=== PATIENT | male | born 1935 | race Caucasian/White ===

== ENCOUNTER 2018-06-27 15:08 | Emergency (ER) | payer MEDICARE ==
--- NOTE | 2018-06-27 16:54 | ED Physician Documentation ---
PD HPI HEENT - Stated complaint Stated Complaint: LIPS AND L CHEEK SWELLING/NUMB - Chief complaint Chief Complaint: Heent - History obtained from History obtained from: Patient - History of Present Illness Timing - onset: Today Timing - details: Abrupt onset Location: Mouth (upper lip swelling an hour or so after taking Lisinopril. He had similar swelling 6 months ago and had stopped the med. He wanted to be sure if that was the cause so started taking the med again today and got the lip swelling right away.) Similar symptoms before: No diagnosis (presumed MANDIE mediated edema 6 months ago) Recently seen: Not recently seen Review of Systems Constitutional: denies: Fever, Chills Nose: denies: Rhinorrhea / runny nose, Congestion Throat: denies: Sore throat Cardiac: denies: Chest pain / pressure Respiratory: denies: Dyspnea, Cough Neurologic: denies: Generalized weakness, Near syncope PD PAST MEDICAL HISTORY - Past Medical History Cardiovascular: Hypertension - Present Medications Home Medications: Ambulatory Orders Medication Instructions Recorded Confirmed Aspirin 06/27/18 06/27/18 Gemfibrozil 06/27/18 Glipizide 06/27/18 Lovastatin 06/27/18 - Allergies Allergies/Adverse Reactions: Allergies Allergy/AdvReac Type Severity Reaction Status Date / Time lisinopril Allergy Edema Verified 06/27/18 15:18 PD ED PE NORMAL - Vitals Vital signs reviewed: Yes - General General: Alert and oriented X 3, No acute distress, Well developed/nourished - HEENT HEENT: Pharynx benign (no edema of tongue nor uvula. Normal voice and breathing. upper lip with edema. ) - Neck Neck: Supple, no meningeal sign, No adenopathy - Cardiac Cardiac: RRR, No murmur - Respiratory Respiratory: Clear bilaterally Results - Vitals Vitals: Oxygen O2 Source Room air PD MEDICAL DECISION MAKING - ED course Complexity details: considered differential (seems good direct cause and effect, so will have him stop the lisinopril. 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 Her blood pressure is pretty good right now so I do not think you need to substitute blood pressure medicine at this time. Follow-up with your primary care as scheduled. Discharge Date/Time: 06/27/18 17:28
[2018-06-27] MEDS ORDERED: DEXAMETHASONE 10 MG/ML VIAL PO STA (17:07)
[2018-06-27 17:09] VITALS: BP 124/57
[2018-06-27] MEDS ORDERED: CHERRY SYRUP 10 ML UDC PO ONE (17:11)
== END 2018-06-27 17:28 | disposition home or self-care (01) ==
LOC: ED 15:08
DX: R22.0 Localized swelling, mass and lump, head (principal); T78.3XXA Angioneurotic edema, initial encounter; T46.4X5A Adverse effect of angiotensin-converting-enzyme inhibitors, initial encounter; I10 Essential (primary) hypertension
CPT/HCPCS: 99283; A9270

== ENCOUNTER 2019-02-26 13:29 | Outpatient (CLI) | payer MEDICARE | END 2019-02-26 13:30 | disposition critical access hospital (66) | LOC: EMS 13:29 | PROVIDERS: ATTEND Surgery | DX: R42 Dizziness and giddiness (principal); R73.09 Other abnormal glucose; R50.9 Fever, unspecified; W01.0XXA Fall on same level from slipping, tripping and stumbling without subsequent striking against object, initial encounter; Y93.01 Activity, walking, marching and hiking; Y92.480 Sidewalk as the place of occurrence of the external cause | CPT/HCPCS: A0425; A0427 ==

== ENCOUNTER 2019-02-26 13:55 | Inpatient (IN) | payer MEDICARE ==
[2019-02-26] MEDS ORDERED: SODIUM CHLORIDE 0.9% 1,000 ML IV ONE ×2 (14:02→15:14)
--- NOTE | 2019-02-26 14:05 | ED Physician Documentation ---
PD HPI ALTERED MENTAL STATUS - Stated complaint Stated Complaint: GLF - Chief complaint Chief Complaint: Neuro - History obtained from History obtained from: Patient, EMS - History of Present Illness Timing - onset: Today (83-year-old gentleman with history of nephrectomy for cancer and diabetes. Says he does not take any medications. He was [place] from the [place] and felt dizzy and fell. There was no clear injury. Brought in by paramedics, report was temperature 99.9 temporal and blood sugar was too high for the fingerstick meter to calculate. Patient is somewhat altered.) Review of Systems Unable to obtain: Confused PD PAST MEDICAL HISTORY - Past Medical History Cardiovascular: Hypertension Endocrine/Autoimmune: Type 2 diabetes - Present Medications Home Medications: Ambulatory Orders Medication Instructions Recorded Confirmed Aspirin 06/27/18 06/27/18 Gemfibrozil 06/27/18 Glipizide 06/27/18 Lovastatin 06/27/18 - Allergies Allergies/Adverse Reactions: Allergies Allergy/AdvReac Type Severity Reaction Status Date / Time lisinopril Allergy Edema Verified 02/26/19 14:03 - Social History Does the pt smoke?: No Smoking Status: Never smoker PD ED PE NORMAL - Vitals Vital signs reviewed: Yes - General General: Other (He is alert and oriented to person and place but not time or events. He says the year is 1920.) - HEENT HEENT: PERRL, EOMI, Other (Dry mucous membranes) - Neck Neck: Supple, no meningeal sign, No bony TTP - Cardiac Cardiac: Other (Frequent extrasystoles) - Respiratory Respiratory: Other (Wheezy at the bases, good air motion, no distress) - Abdomen Abdomen: Soft, Non tender - Back Back: No CVA TTP, No spinal TTP - Derm Derm: Normal color, Warm and dry - Extremities Extremities: No edema, No calf tenderness / cord - Neuro Neuro: call center representative 2-12 intact, No motor deficit, No sensory deficit Eye Opening: Spontaneous Motor: Obeys Commands Verbal: Confused GCS Score: 14 - Psych Psych: Normal mood, Normal affect Results - Vitals Vitals: Vital Signs - 24 hr 02/26/19 02/26/19 13:57 14:26 Temperature 37.1 C Heart Rate 69 73 Respiratory 18 23 Rate Blood Pressure 135/88 H 127/66 O2 Saturation 97 94 Oxygen O2 Source Room air - Labs Labs: Laboratory Tests 02/26/19 02/26/19 02/26/19 14:36 14:36 14:36 WBC 6.7 RBC 3.68 L Hgb 10.8 L Hct 33.4 L MCV 90.8 MCH 29.3 MCHC 32.3 RDW 14.6 Plt Count 133 MPV 12.5 H Neut # (Auto) 4.9 Lymph # (Auto) 1.2 L [place] # (Auto) 0.4 Eos # (Auto) 0.1 Baso # (Auto) 0.1 Absolute Nucleated RBC 0.00 Nucleated RBC % 0.0 PT 12.1 INR 1.1 VBG pH VBG pCO2 VBG pO2 VBG HCO3 VBG Total CO2 VBG O2 Saturation VBG Base Excess Sodium 125 L Potassium 4.9 Chloride 96 L Carbon Dioxide 19 L Anion Gap 10.0 BUN 25 H Creatinine 2.3 H Estimated GFR (MDRD) 27 L Glucose 713 H* Lactic Acid Calcium 7.9 L Magnesium 1.8 Total Bilirubin 0.5 AST 26 ALT 23 Alkaline Phosphatase 200 H Total Creatine Kinase 81 CK-MB (CK-2) Troponin I Total Protein 6.7 Albumin 3.0 L Globulin 3.7 Albumin/Globulin Ratio 0.8 L Lipase 69 H Urine Color Urine Clarity Urine pH Ur Specific [place] Urine Protein Urine Glucose (UA) Urine Ketones Urine Occult Blood Urine Nitrite Urine Bilirubin Urine Urobilinogen Ur Leukocyte Esterase Ur Microscopic Review Urine Culture Comments Serum Ketones NEGATIVE 02/26/19 02/26/19 02/26/19 14:36 14:36 14:44 WBC RBC Hgb Hct MCV MCH MCHC RDW Plt Count MPV Neut # (Auto) Lymph # (Auto) [place] # (Auto) Eos # (Auto) Baso # (Auto) Absolute Nucleated RBC Nucleated RBC % PT INR VBG pH 7.280 L VBG pCO2 42.4 VBG pO2 50.8 H VBG HCO3 19.5 L VBG Total CO2 20.8 L VBG O2 Saturation 86.7 H VBG Base Excess -6.9 L Sodium Potassium Chloride Carbon Dioxide Anion Gap BUN Creatinine Estimated GFR (MDRD) Glucose Lactic Acid 1.9 Calcium Magnesium Total Bilirubin AST ALT Alkaline Phosphatase Total Creatine Kinase CK-MB (CK-2) 3.6 Troponin I < 0.04 Total Protein Albumin Globulin Albumin/Globulin Ratio Lipase Urine Color Urine Clarity Urine pH Ur Specific [place] Urine Protein Urine Glucose (UA) Urine Ketones Urine Occult Blood Urine Nitrite Urine Bilirubin Urine Urobilinogen Ur Leukocyte Esterase Ur Microscopic Review Urine Culture Comments Serum Ketones 02/26/19 15:05 WBC RBC Hgb Hct MCV MCH MCHC RDW Plt Count MPV Neut # (Auto) Lymph # (Auto) [place] # (Auto) Eos # (Auto) Baso # (Auto) Absolute Nucleated RBC Nucleated RBC % PT INR VBG pH VBG pCO2 VBG pO2 VBG HCO3 VBG Total CO2 VBG O2 Saturation VBG Base Excess Sodium Potassium Chloride Carbon Dioxide Anion Gap BUN Creatinine Estimated GFR (MDRD) Glucose Lactic Acid Calcium Magnesium Total Bilirubin AST ALT Alkaline Phosphatase Total Creatine Kinase CK-MB (CK-2) Troponin I Total Protein Albumin Globulin Albumin/Globulin Ratio Lipase Urine Color YELLOW Urine Clarity HAZY Urine pH 6.0 Ur Specific [place] 1.010 Urine Protein 100 H Urine Glucose (UA) >=1000 H Urine Ketones NEGATIVE Urine Occult Blood SMALL H Urine Nitrite NEGATIVE Urine Bilirubin NEGATIVE Urine Urobilinogen 0.2 (NORMAL) Ur Leukocyte Esterase NEGATIVE Ur Microscopic Review INDICATED Urine Culture Comments Not Reportable Serum Ketones - Rads (name of study) CT Head and Cspine Radiology: EMP read contemporaneously (atrophy, DJD, NAD) 1v chest Radiology: EMP read contemporaneously (cardiomegaly, NAD) PD MEDICAL DECISION MAKING - ED course ED course: This is an 83-year-old gentleman who presents somewhat confused after a fall without clear injury. Head and C-spine CT were without clear injury and there was no obvious injury nor infectious cause on the chest x-ray. His work-up demonstrates profound hyperglycemia with renal failure of unclear chronicity. He had a history of a remote nephrectomy but he says he never had trouble with renal insufficiency. No prior labs available in our system regardless he will need to be admitted for further evaluation and treatment. An insulin drip was started and I spoke with Dr. Darby for admission at 3:15 PM. Departure - Departure Disposition: 66 [facility] DC/Xfer Clinical Impression: Hyperglycemia, Renal insufficiency, Confusion Condition: Serious
--- NOTE | 2019-02-26 14:39 | CT Report ---
Reason: altered, fall Procedure Date: 02/26/2019 Accession Number: [id number] / [id number] Procedure: CT - HEAD WO CPT Code: FULL RESULT: EXAM: CT HEAD EXAM DATE: 02/26/2019 02:26 PM. CLINICAL HISTORY: Altered, fall. COMPARISON: None. TECHNIQUE: Multiaxial CT images were obtained from the foramen magnum to the vertex. Reformats: Sagittal and coronal. IV contrast: None. In accordance with CT protocol optimization, one or more of the following dose reduction techniques were utilized for this exam: automated exposure control, adjustment of mA and/or KV based on patient size, or use of iterative reconstructive technique. FINDINGS: The imaged portions of the paranasal sinuses are normally aerated. The bilateral mastoid air cells are normally aerated. There is no acute fracture of the calvaria. The imaged portions of the orbits are normal in appearance. There are periventricular, subcortical, and deep white matter hypodensities consistent with a mild to moderate degree of chronic small vessel ischemia. There is enlargement of the lateral ventricles and the third ventricle but not out of proportion to the concomitant enlargement of the cerebral sulci. The jason-white differentiation remains distinct. The imaged portions of the orbits are normal in appearance. IMPRESSION: 1. There is no acute intracranial abnormality. 2. There is mild to moderate degree of chronic small vessel ischemia and mild to moderate degree of generalized volume loss.
--- NOTE | 2019-02-26 14:46 | XRAY Report ---
Reason: abd breath sounds, altered Procedure Date: 02/26/2019 Accession Number: [id number] / [id number] Procedure: XR - Chest 1 View X-Ray CPT Code: 16561 FULL RESULT: EXAM: CHEST RADIOGRAPHY, PORTABLE 1 VIEW EXAM DATE: 02/26/2019 02:25 PM. CLINICAL HISTORY: Abnormal breath sounds, altered, in an 83-year-old male. COMPARISON: None. TECHNIQUE: 1405 hour AP portable view. FINDINGS: Lungs/Pleura: No focal opacities evident. No pleural effusion. No pneumothorax. Mediastinum: Heart size mildly enlarged, without adenopathy or pulmonary vascular congestion. Other: Trachea is midline. Osseous structures are unremarkable for age. IMPRESSION: Mild cardiomegaly without CHF, pneumonia or other demonstrated cause for the patient's symptoms. RADIA
--- NOTE | 2019-02-26 14:49 | CT Report ---
Reason: altered fall Procedure Date: 02/26/2019 Accession Number: [id number] / [id number] Procedure: CT - CERVICAL SPINE WO CPT Code: FULL RESULT: EXAM: CT CERVICAL SPINE WITHOUT CONTRAST DATE: 02/26/2019 02:26 PM. HISTORY: Altered. Fall in an 83-year-old male. COMPARISONS: None. TECHNIQUE: Examination performed on an emergent basis. Thin-section axial images were acquired of the cervical spine without contrast. Post-processing: Coronal and sagittal reformats. Other: None. In accordance with CT protocol optimization, one or more of the following dose reduction techniques were utilized for this exam: automated exposure control, adjustment of mA and/or KV based on patient size, or use of iterative reconstructive technique. FINDINGS: Alignment: No scoliosis or spondylolisthesis. Bones: Mild to moderate hypertrophic changes, age appropriate. No fracture or bone lesion. Interspace Levels/Facets: Moderate to severe degenerative disk space narrowing from C2-C3 through C7-T1. No subluxation. Musculature: Normal. No fatty atrophy. Other: The paravertebral and prevertebral soft tissues are unremarkable. The lung apices are clear. IMPRESSION: Multilevel mild to moderate degenerative disk disease. No acute process or posttraumatic abnormality noted. RADIA
[2019-02-26 14:55] LABS: BASOPHILS # (AUTO) 0.1 10^3/uL (0.0-0.1); BASOPHILS % (AUTO) 0.7 %; EOSINOPHILS # (AUTO) 0.1 10^3/uL (0.0-0.7); EOSINOPHILS % (AUTO) 0.9 %; HGB - HEMOGLOBIN 10.8 g/dL (14.0-18.0); LYMPHOCYTES # (AUTO) 1.2 10^3/uL (1.5-3.5); LYMPHOCYTES % (AUTO) 18.1 %; MEAN CORPUSCULAR HEMOGLOBIN 29.3 pg (27.0-31.0); MEAN CORPUSCULAR HGB CONC 32.3 g/dL (32.0-36.0); MEAN CORPUSCULAR VOLUME 90.8 fL (80.0-94.0); MEAN PLATELET VOLUME 12.5 fL (7.4-11.4); MONOCYTES # (AUTO) 0.4 10^3/uL (0.0-1.0); NEUTROPHILS # (AUTO) 4.9 10^3/uL (1.5-6.6); NEUTROPHILS % (AUTO) 73.3 %; PLT - PLATELET COUNT 133 10^3/uL (130-450); RED BLOOD COUNT 3.68 10^6/uL (4.70-6.10); RED CELL DISTRIBUTION WIDTH 14.6 % (12.0-15.0); VBG BASE EXCESS -6.9 mmol/L (-2 - +2); VBG PCO2 42.4 mmHg (41-51); VBG PH 7.28 (7.31-7.41); VBG PO2 50.8 mmHg (25-47); VBG TOTAL CO2 20.8 mmol/L (24-29); WHITE BLOOD COUNT 6.7 x10^3/uL (4.8-10.8)
[2019-02-26 15:05] LABS: KETONES, SERUM (ACETEST) NEGATIVE (NEGATIVE)
[2019-02-26 15:10] LABS: INR 1.1 (0.8-1.2); PT - PROTHROMBIN TIME 12.1 secs (9.9-12.6)
[2019-02-26 15:13] LABS: ALBUMIN/GLOBULIN RATIO 0.8 (1.0-2.2); ALKALINE PHOSPHATASE 200 IU/L (42-121); ALT ALANINE AMINOTRANSFERASE 23 IU/L (10-60); AST ASPARTATE AMINOTRANSFERASE 26 IU/L (10-42); BILIRUBIN,TOTAL 0.5 mg/dL (0.2-1.0); BUN - BLOOD UREA NITROGEN 25 mg/dL (6-20); CALCIUM 7.9 mg/dL (8.5-10.3); CARBON DIOXIDE - CO2 19 mmol/L (21-32); CHLORIDE 96 mmol/L (101-111); CK- CREATINE KINASE 81 IU/L (22-269); CREATININE 2.3 mg/dL (0.6-1.2); GFR - MDRD 27 (>89); GLUCOSE 713 mg/dL (70-100); LIPASE 69 U/L (22-51); MAGNESIUM 1.8 mg/dL (1.7-2.8); SODIUM 125 mmol/L (135-145); TOTAL PROTEIN 6.7 g/dL (6.7-8.2)
[2019-02-26 15:13] LABS: BILIRUBIN,URINE NEGATIVE (NEGATIVE); GLUCOSE, URINE (UA) >=1000 mg/dL (NEGATIVE); KETONES,URINE (UA) NEGATIVE (NEGATIVE); LEUKOCYTE ESTERASE, URINE NEGATIVE (NEGATIVE); NITRITE,URINE NEGATIVE (NEGATIVE); OCCULT BLOOD,URINE SMALL (NEGATIVE); PROTEIN,URINE 100 mg/dL (NEGATIVE); UROBILINOGEN,URINE 0.2 (NORMAL) E.U./dL (NORMAL)
[2019-02-26 15:15] LABS: TROPONIN I < 0.04 ng/mL (<0.49)
[2019-02-26 15:16] LABS: CLARITY,URINE HAZY (CLEAR)
[2019-02-26 15:17] LABS: CREATINE KINASE MB 3.6 ng/mL (0.6-6.3)
[2019-02-26] MEDS ORDERED: HYDROmorphone 1 MG/ML CARPUJECT IVP PRN (15:29)
[2019-02-26] MEDS ORDERED: ACETAMINOPHEN 325 MG TABLET PO PRN (15:29)
[2019-02-26] MEDS ORDERED: SODIUM CHLORIDE FLUSH 0.9% 10 ML SYRINGE IVP PRN (15:29)
[2019-02-26] MEDS ORDERED: PROCHLORPERAZINE 10 MG/2 ML VIAL IVP PRN (15:29)
[2019-02-26 15:36] LABS: BACTERIA,URINE Moderate /HPF (None Seen); SQUAMOUS EPITHELIAL CELL,UR RARE Squamous (<= Few); WBC CLUMPS,URINE PRESENT
[2019-02-26] MEDS ORDERED: INSULIN REGULAR HUMAN 100 UNIT in SODIUM CHLORIDE 0.9% 100ML 99 ML IV SCH ×2 (16:00)
[2019-02-26 16:25] LABS: FOLATE 6.42 ng/mL (5.90 - >24.8)
[2019-02-26] MEDS: SODIUM CHLORIDE 0.9% 1,000 ML IV SCH ×2 (16:40→21:39)
[2019-02-26 16:53] LABS: MUDS CUTOFF CONCENTRATIONS CUTOFF CONC BELOW:
[2019-02-26 17:09] LABS: AMPHETAMINE SCREEN,URINE NEGATIVE (NEGATIVE); BENZODIAZEPINES SCREEN, URINE NEGATIVE (NEGATIVE); COCAINE SCREEN URINE NEGATIVE (NEGATIVE); METHADONE SCREEN, URINE NEGATIVE (NEGATIVE); METHAMPHETAMINES SCREEN, URINE NEGATIVE (NEGATIVE); OPIATE SCREEN, URINE NEGATIVE (NEGATIVE); OXYCODONE SCREEN, URINE NEGATIVE (NEGATIVE); PROPOXYPHENE SCREEN, URINE NEGATIVE (NEGATIVE); TRICYCLIC ANTIDEPRESSANT,URINE NEGATIVE (NEGATIVE)
[2019-02-26 17:13] LABS: CALCIUM 8.1 mg/dL (8.5-10.3); CREATININE 2.3 mg/dL (0.6-1.2); MAGNESIUM 1.9 mg/dL (1.7-2.8)
[2019-02-26] MEDS: SODIUM CHLORIDE FLUSH 0.9% 10 ML SYRINGE IVP SCH (17:37)
--- NOTE | 2019-02-26 17:48 | ADVANCE CARE PLANNING NOTE ---
Advance Care Planning - Date/Time Date: 02/26/19 Time: 17:45 - Purpose of encounter Text: To establish patient's code wishes and his wishes for aggressiveness of medical care. To confirm if he is noncompliant with medications because of depression over his 's and "giving up". - Parties in attendance Parties in attendance: The Hospitalist spoke to the patient who was sitting upright in bed, and the wendy jeong's nurse, Crispin Patel, was in the room - Decisional capacity Decisional capacity of: The patient appears to be lucid despite having some loss of memory but is speaking clearly and making sense and has reasonable requests, and appears to have decisional capacity - Subjective/Patient's story Subjective/Patient's story: Patient has a history of diabetes and hypertension, refuses to use Insulin because he is "afraid of needles" (this is from the reconciled medication list that pharmacy obtained moments ago). I received a message from the nurse and the pharmacist that the granddaughter described the patient as giving up on life ever since patient's 7 months ago. The patient admits to intermittently not taking his medications, because it is not handy or he is forgetful but not on purpose. He now lives alone, the grand-daughter visits him every other day. Today while walking up a slope on the sidewalk he got dizzy, held onto a tree and then slumped to the ground, did not have syncope, remembers everything, is brought to the ER by EMS. He was confused in the ER and found to have hyperglycemia, hyponatremia, dehydration with CHRISTIANO. - Objective/Medical story Objective/Medical Story: The patient was brought to the ER after a fall, possibly no syncope, probably no trauma. Head CT and C-spine x-rays showed no fracture or hemorrhage. Work-up showed: Glucose 738, sodium 129, anion gap elevated, VBG shows pH of 7.28. Creat is 2.3. He has a history of renal carcinoma, is status post nephrectomy, baseline creatinine is not known. He has a history of diabetes and hypertension. He is in the ICU for management of hyperglycemia with an Insulin drip and dehy dration and CHRISTIANO with iv hydration. Work-up of near-syncope will be ordered. - Goals of Care Goals of care determinations: Patient states that he never told his family or his PCP what his wishes are for CODE STATUS. Patient reports to me now that he would not want resuscitation, he wants to allow natural . Patient also wants selective medical care, he would not wish to be transferred to a larger hospital for higher level of care - Plan Plan: Sign new POLST form: DNR status and selective treatment. - Code Status Code Status: Do Not Attempt Resuscitation - Time Spent on Advance Care Planning Time spent on advance care plannin min
[2019-02-26 17:53] LABS: VBG BASE EXCESS -5.5 mmol/L (-2 - +2); VBG PCO2 47.7 mmHg (41-51); VBG PH 7.271 (7.31-7.41); VBG PO2 18.9 mmHg (25-47); VBG TOTAL CO2 22.9 mmol/L (24-29)
[2019-02-26 18:16] LABS: HB2 TOTAL 12.4 g/dL; HEMOGLOBIN A1C 1.96 g/dL; HEMOGLOBIN A1C % 16.6 % (4.6-6.2)
[2019-02-26 18:18] LABS: CREATININE 2.3 mg/dL (0.6-1.2)
--- NOTE | 2019-02-26 19:21 | HISTORY & PHYSICAL EXAMINATION ---
DATE OF SERVICE: 02/26/2019 Physician: Hannah Darby MD HISTORY OF PRESENT ILLNESS: This is an 83-year-old white male with a history of renal cancer with a nephrectomy remotely, history of diabetes and hypertension. The patient's in June (8 months ago) and according to the granddaughter, the patient has lost the will to live and has stopped taking his medications and taking care of himself. Today, the patient was attending a [place] parade, was walking up a steep slope and states that he got dizzy, walked over toward a tree and hugged it and was still dizzy and slumped to the ground. He did not fall with any trauma. He does not think he had syncope, as he can remember the entire event. He was brought to the ER by an ambulance. The ambulance run sheet is not available to tell me the vital signs on the scene. In the emergency room, he had stable blood pressure and heart rate, was somewhat confused, giving very short answers. He did admit to not taking his medications occasionally. He denied any other complaints and was no longer dizzy. Workup in the ER showed that he has hyperglycemia with glucose of >700, serum pH of 7.23, creatinine of 2.3. He is being admitted for management of these. PAST MEDICAL HISTORY 1. Renal cancer with nephrectomy, his baseline renal function is not known, no prior renal lab values here. 2. History of hypertension. 3. History of diabetes, and he has refused to take insulin since he is "afraid of needles" according to the granddaughter. ALLERGIES: GEMFIBROZIL WITH UNKNOWN REACTION and LISINOPRIL CAUSED ANGIOEDEMA OF HIS LIPS. MEDICATIONS AT HOME He is prescribed to be takin. Cetirizine 10 mg daily. 2. Metformin 1000 mg b.i.d. 3. Glipizide 10 mg b.i.d. 4. Amlodipine 2.5 mg daily. He has not taken these for several days. REVIEW OF SYSTEMS: The patient denies any cardiopulmonary complaints. A comprehensive review of system was performed and the pertinent positives were all listed, the rest were negative. SOCIAL HISTORY: The patient lives alone. He watches TV most of the day. His granddaughter visits him every other day to assist him with medications and food. The patient is a nonsmoker, who quit 20 years ago. The patient drinks no alcohol. There has been no recent travel, fever or other complaints. The patient no longer drives a car because he was told not to because of his poor memory. FAMILY HISTORY: No inherited diseases. PHYSICAL EXAMINATION GENERAL: Elderly, thin white male. He is slightly disheveled. He is in no distress. VITAL SIGNS: Blood pressure 150/100, heart rate 73 in sinus rhythm, afebrile, room air saturation 96%. HEENT: Reveals that he is unshaven. Oral mucosa is moist. NECK: No JVD or carotid bruits. CHEST: Clear. HEART: Normal heart sounds, but distant. No audible murmurs. No RV heave. No gallop. ABDOMEN: Soft with positive bowel sounds, nontender. No organomegaly. EXTREMITIES: No clubbing, cyanosis or edema. NEUROLOGIC: Intact. He admits to having a poor memory. LABORATORY DATA: Sodium 125, potassium 4.9, BUN 25, creatinine 2.3, glucose 713, magnesium 1.8. Normal liver tests. Alkaline phosphatase 200. Troponin not detectable. Lactic acid normal at 1.9. Venous blood gas had a pH of 7.28. White blood count normal, hemoglobin 10.8, MCV 90, platelet count normal at 133. Urinalysis had positive protein, high glucose, small occult blood, small white cells, moderate bacteria, and culture was indicated. Urine tox screen was negative entirely. Alcohol level was not present and serum ketones were negative. INR normal at 1.1. CHEST X-RAY: No active pulmonary disease. Cardiomegaly is present. Head CT: Showed no bleeding, no midline shift, and there are changes of mild diffuse ischemic disease. Cervical spine CT: Showed DJD, but no areas of fracture. IMPRESSION/DIAGNOSES 1. Hyperglycemia. 2. Dehydration. 3. Acute kidney injury. 4. Confusion. 5. Fall against object (tree). 6. Near-syncope. 7. Noncompliance with treatment. 8. History of diabetes. 9. Elevated alkaline phosphatase. 10. abnormal urinalysis (possible urinary tract infection). PLAN 1. Admit the patient to the ICU on telemetry. 2. Begin a DKA protocol briefly, using IV insulin drip to help control the marked hyperglycemia. 3. Begin IV fluids with saline. 4. Follow his fingerstick glucoses, anion gap and BMP, VBG closely. 5. Obtain an Echo to evaluate LV and RV contractility. 6. Obtain an EKG because of his history of fall, and with advanced age and history of diabetes, making coronary artery disease a possibility. 7. The first troponin was negative, repeat a troponin to assure that this was not a cardiac event. 8. Obtain Social Work consult regarding his noncompliance. I suspect there is reactive depression and continued grief. 9. He will need workup for elevated alkaline phosphatase, which is out of proportion to any liver abnormalities, therefore concern for bony metastasis or Paget's disease of the bone. 10. Consider empiric treatment for urinary tract infection and image for urinary obstruction or pyelonephritis. Rocephin would be started. 11. Follow his renal function closely. CODE STATUS: DNR (he just requested a DNR status). DEEP VENOUS THROMBOSIS PROPHYLAXIS: JUVENAL stockings and SCDs. ATTESTATION: The patient is expected to be transferred to another facility within 96 hours: Yes. cc: LINDSEY TD: 02/26/2019 18:19 [facility]
[2019-02-26 19:28] LABS: VBG PCO2 45.7 mmHg (41-51); VBG PH 7.263 (7.31-7.41); VBG PO2 25.5 mmHg (25-47); VBG TOTAL CO2 21.6 mmol/L (24-29)
[2019-02-26 19:29] LABS: VBG BASE EXCESS -6.7 mmol/L (-2 - +2)
[2019-02-26] MEDS: FAMOTIDINE 20 MG TABLET PO SCH (21:30)
[2019-02-27 00:01] LABS: BILIRUBIN,URINE NEGATIVE (NEGATIVE); CLARITY,URINE CLEAR (CLEAR); GLUCOSE, URINE (UA) >=1000 mg/dL (NEGATIVE); KETONES,URINE (UA) NEGATIVE (NEGATIVE); LEUKOCYTE ESTERASE, URINE NEGATIVE (NEGATIVE); NITRITE,URINE NEGATIVE (NEGATIVE); OCCULT BLOOD,URINE SMALL (NEGATIVE); PH,URINE 6.5 PH (5.0-7.5); PROTEIN,URINE 100 mg/dL (NEGATIVE); UROBILINOGEN,URINE 0.2 (NORMAL) E.U./dL (NORMAL)
[2019-02-27 00:07] LABS: BACTERIA,URINE Few /HPF (None Seen); SQUAMOUS EPITHELIAL CELL,UR FEW Squamous (<= Few)
[2019-02-27] MEDS: SODIUM CHLORIDE FLUSH 0.9% 10 ML SYRINGE IVP SCH ×3 (01:21→19:15)
[2019-02-27 04:58] LABS: BASOPHILS # (AUTO) 0.1 10^3/uL (0.0-0.1); BASOPHILS % (AUTO) 0.8 %; EOSINOPHILS # (AUTO) 0.1 10^3/uL (0.0-0.7); EOSINOPHILS % (AUTO) 1.2 %; HGB - HEMOGLOBIN 10.7 g/dL (14.0-18.0); MEAN CORPUSCULAR HGB CONC 32.2 g/dL (32.0-36.0); MONOCYTES # (AUTO) 0.6 10^3/uL (0.0-1.0); MONOCYTES % (AUTO) 7.2 %; NEUTROPHILS # (AUTO) 5.5 10^3/uL (1.5-6.6); NEUTROPHILS % (AUTO) 65.5 %; PLT - PLATELET COUNT 147 10^3/uL (130-450); RED BLOOD COUNT 3.69 10^6/uL (4.70-6.10); RED CELL DISTRIBUTION WIDTH 14.7 % (12.0-15.0); WHITE BLOOD COUNT 8.4 x10^3/uL (4.8-10.8)
[2019-02-27 05:15] LABS: CALCIUM 7.9 mg/dL (8.5-10.3); CREATININE 2.1 mg/dL (0.6-1.2); MAGNESIUM 1.9 mg/dL (1.7-2.8); PHOSPHORUS 2.6 mg/dL (2.5-4.6)
[2019-02-27] MEDS: SODIUM CHLORIDE 0.9% 1,000 ML IV SCH ×3 (05:15→21:59)
--- NOTE | 2019-02-27 06:17 | XRAY Report ---
Reason: Cardiomegaly, F/U for pulm vasc congestion Procedure Date: 02/27/2019 Accession Number: [id number] / [id number] Procedure: XR - Chest 1 View X-Ray CPT Code: 40348 FULL RESULT: EXAM: CHEST RADIOGRAPHY EXAM DATE: 02/27/2019 05:20 AM. CLINICAL HISTORY: Cardiomegaly, follow-up for pulmonary vascular congestion. COMPARISON: CHEST 1 VIEW 02/26/2019 2:05 PM. TECHNIQUE: 1 view. FINDINGS: Lungs/Pleura: Small subsegmental bibasilar opacities are noted. No significant effusion. No definite pneumothorax. No pulmonary venous congestion demonstrated. Mediastinum: Cardiac silhouette is within normal limits when accounting for lung volumes and technique. Other: None. IMPRESSION: 1. No evidence of CHF. 2. Small subsegmental bibasilar opacities, atelectasis, aspiration, or developing pneumonia. RADIA
[2019-02-27] MEDS ORDERED: INSULIN ASPART 300 UNIT/3 ML PEN SUBQ SCH (08:00)
[2019-02-27] MEDS ORDERED: metFORMIN 500 MG TABLET PO SCH (08:00)
[2019-02-27] MEDS: FAMOTIDINE 20 MG TABLET PO SCH (08:28)
--- NOTE | 2019-02-27 08:40 | PROVIDER PROGRESS NOTE ---
Assessment/Plan - Problem List (1) DM (diabetes mellitus), type 2, uncontrolled Assessment/Plan: The A1c returned at 16.6 indicating extremely poor control of Diabetes. The glucose has dropped from the 700s to the 200s, the IV insulin drip is stopped. We will begin long-acting insulin 10 units subcu twice daily and sliding scale insulin coverage. Continue with a carb controlled diet. Diabetic teaching from [facility] would be very helpful. (2) Noncompliance with diabetes treatment Assessment/Plan: The family suspects that he has no will to live since his in June 2018, therefore is not taking his Diabetic (and other) meds. There is also note that the patient "is afraid of needles". Other information is that the patient vehemently refuses any insulin use, already known by the PCP. Social work consult has been requested regarding possible depression or continued grieving. [facility] [place] consult has been requested to determine best realistic diabetic management for him. (3) Cerebral ischemia Assessment/Plan: Brain CT showed evidence of diffuse chronic ischemic disease. Likely causes are very poorly controlled DM, HTN uncontrolled and hyperlipidemia (a.m. Triglycerides very high). Awaiting carotid Doppler. Obtain a full fasting lipid panel and treat per NCAP guidelines: to achieve an L DL <70 in a Diabetic and triglycerides <150. (4) Confusion Assessment/Plan: This is likely multifactorial: he is probably depressed, has cerebral ischemia seen on brain CT, has been hyperosmolar and dehydrated. I have asked for Social Work to see him regarding possible depression. He is not a safe discharge to living alone at home, social work will need to address this as well. I have ordered fasting lipid panel and will start treatment to achieve levels per guidelines. More aggressive diabetic management as needed: Diabetic teaching has been ordered. Now that he has had hydration overnight, will stop the bedrest order, order out of bed and begin PT and OT evaluations. (5) Fall Qualifiers: Encounter type: subsequent encounter Qualified Code(s): W19.XXXD - Unspecified fall, subsequent encounter Assessment/Plan: No sequelae of trauma. He needs a syncope W/U as he becomes more mobile. (6) Near syncope Assessment/Plan: Will start orthostatic VS checks. Also Echo and carotid Dopplers ordered. Follow CBC regarding anemia and start anemia work-up. Now that he has had hydration overnight, will stop the bedrest order, order out of bed and begin PT (7) Renal insufficiency Assessment/Plan: Patient has one kidney, is status post nephrectomy for renal cell carcinoma rem otely. His baseline creatinine is unknown however. There are no creat lab results in [facility] even. Continue with gentle IV hydration and avoid nephrotoxic agents. As such his Metformin will not be restarted yet. (8) Anemia Assessment/Plan: This is of concern since he is hemodiluted with his need for rehydration. Will obtain B12, folate, iron panel and replace if low. Follow CBC daily, he may need transfusion if the hemoglobin drops below 7 or 8 and he is symptomatic (9) Atelectasis of both lungs Assessment/Plan: Today's CXR is showing either a develpoing CAP or atelectasis. Will order Incentive Spirometry. (10) UTI (urinary tract infection) Assessment/Plan: 2 urinalyses were done that showed bacteria and cultures are indicated. We will start on empiric IV antibiotics using Rocephin. 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 Will consider a nuclear scan of skeleton to evaluate. The abdomen CT will also evaluate the biliary tree, liver and pancreas where abnormalities s may also cause elevated alk phos - Current Meds Current Meds: Current Medications Generic Name Dose Route Start Last Admin Trade Name Freq PRN Reason Stop Dose Admin Famotidine 20 mg 02/26/19 21:00 02/27/19 08:28 Pepcid PO 20 mg BID DAVID Administration Sodium Chloride 1,000 mls @ 125 mls/hr 02/26/19 16:00 02/27/19 08:28 Normal Saline 0.9% IV 125 mls/hr .Q8H DAVID Infusion Insulin Aspart 1 - 9 unit 02/27/19 08:00 02/27/19 08:17 Novolog SUBQ 7 unit 0800,1200,1700,2100 DAVID Administration Protocol Sodium Chloride 10 ml 02/26/19 17:00 02/27/19 01:21 Normal Saline Flush 0.9% IVP Not Given 0100,0900,1700 DAVID - Lab Result Fish Bone Diagrams: 02/27/19 04:35 02/27/19 04:35 - Additional Planning My Orders: My Active Orders 02/26/19 15:29 Activity Orders [RC] Q2HR Daily Weight [RC] 0600 IO [RC] Q1HR Initiate Bowel Care Protocol [RC] QSHIFT Initiate ICU Electrolyte Prot. [RC] .protocol Initiate Line Care Protocol [RC] .protocol Initiate Personal Care Protoco [RC] .protocol Vital Signs [RC] Q2HR Acetaminophen [Tylenol] 650 mg PO Q4HR PRN HYDROmorphone INJ CARP [Dilaudid Inj Carp] 1 mg IVP Q2HR PRN Prochlorperazine Inj [Compazine Inj] 10 mg IVP Q6HR PRN Sodium Chloride Flush 0.9% [Normal Saline Flush 0.9%] 10 ml IVP PRN PRN Condition of Patient [OTHERS] Routine DVT Prophylaxis [OTHERS] Routine 02/26/19 15:31 Oral Care - Nursing [RC] Routine Oxygen Therapy [RC] .PRN JUVENAL Hose and SCDs [RC] QSHIFT Telemetry- [RC] Q4HR 02/26/19 15:35 Initiate Line Care Protocol [RC] QSHIFT Social Work Consult [CONS] Routine 02/26/19 15:36 Blood Glucose POC [RC] Routine Initiate DKA RN Protocol [RC] .protocol Initiate Hypoglycemia Protocol [RC] .protocol Initiate ICU Electrolyte Prot. [RC] .protocol Notify Provider - Specific Ins [RC] PRN Straight Catheter Insertion [RC] PRN 02/26/19 16:00 Sodium Chloride 0.9% [Normal Saline 0.9%] 1,000 ml IV 125 mls/hr 02/26/19 17:00 Sodium Chloride Flush 0.9% [Normal Saline Flush 0.9%] 10 ml IVP 0100,0900,1700 02/26/19 17:53 Nutrition Consult [CONS] Routine 02/26/19 21:00 Famotidine [Pepcid] 20 mg PO BID 02/26/19 23:02 CUL, URINE [RM] Routine 02/26/19 Dinner DIET [Carb-controlled Diet] [DIET] 02/27/19 Diabetes Outpatient Education MAC [MAC] Routine 02/27/19 05:00 LIPID Panel [CHEM] Routine 02/27/19 08:00 Echo Transthoracic Complete [ECHO] Routine 02/27/19 08:35 IS [Incentive Spirometry - RT] [RC] TID 02/27/19 08:37 Diabetic Education [RC] ONCE MAC Diabetic Ed E&M Levels [RC] .once 02/28/19 05:00 BMP - BASIC METABOLIC PANEL [CHEM] DAILYLAB CBC - COMP BLD CT W/AUTO DIFF [HEME] DAILYLAB MAGNESIUM [CHEM] DAILYLAB 03/01/19 05:00 CBC - COMP BLD CT W/AUTO DIFF [HEME] DAILYLAB Subjective - Subjective Patient Reports: Feeling Better Nursing Reports: No Complaints, Other (Excellent appetite) Objective Vital Signs: Vital Signs - 24 hr 02/26/19 02/26/19 02/26/19 13:57 14:26 15:40 Temperature 37.1 C Heart Rate 69 73 73 Heart Rate [ Monitoring electrodes] Respiratory 18 23 21 Rate Blood Pressure 135/88 H 127/66 145/84 H Blood Pressure [Right Brachial artery] O2 Saturation 97 94 94 02/26/19 02/26/19 02/26/19 16:00 17:00 19:00 Temperature 36.6 C Heart Rate Heart Rate [ 77 Monitoring electrodes] Respiratory 17 25 H 19 Rate Blood Pressure Blood Pressure 139/79 H 152/104 H 120/64 [Right Brachial artery] O2 Saturation 98 96 96 02/26/19 02/26/19 02/27/19 22:00 23:00 01:00 Temperature 36.8 C Heart Rate Heart Rate [ 60 58 L 55 L Monitoring electrodes] Respiratory 19 18 19 Rate Blood Pressure Blood Pressure 141/77 H 139/73 H 115/68 [Right Brachial artery] O2 Saturation 96 96 97 02/27/19 02/27/19 02/27/19 03:00 05:00 08:06 Temperature 36.8 C Heart Rate Heart Rate [ 57 L 64 55 L Monitoring electrodes] Respiratory 18 17 16 Rate Blood Pressure Blood Pressure 121/65 138/67 H 149/76 H [Right Brachial artery] O2 Saturation 96 95 92 02/27/19 08:08 Temperature Heart Rate Heart Rate [ Monitoring electrodes] Respiratory Rate Blood Pressure Blood Pressure 149/76 H [Right Brachial artery] O2 Saturation Oxygen O2 Source Room air I&O (Last 24 Hrs): Intake and Output Totals x24h 02/25/19 02/26/19 02/27/19 23:59 23:59 23:59 Intake Total 2208.447 1744.193 Output Total 650 250 Balance 6122.793 5826.193 General: Alert HEENT: Mucous membr. moist/pink Neck: Supple, No JVD Neuro: Non Focal Cardiovascular: Regular rate Respiratory: No respiratory distress Abdomen: Soft Extremities: No edema - Results Results: Laboratory Results WBC 8.4 x10^3/uL (4.8-10.8) 02/27/19 04:35 RBC 3.69 10^6/uL (4.70-6.10) L 02/27/19 04:35 Hgb 10.7 g/dL (14.0-18.0) L 02/27/19 04:35 Hct 33.2 % (42.0-52.0) L 02/27/19 04:35 MCV 90.0 fL (80.0-94.0) 02/27/19 04:35 MCH 29.0 pg (27.0-31.0) 02/27/19 04:35 MCHC 32.2 g/dL (32.0-36.0) 02/27/19 04:35 RDW 14.7 % (12.0-15.0) 02/27/19 04:35 Plt Count 147 10^3/uL (130-450) 02/27/19 04:35 MPV 12.0 fL (7.4-11.4) H 02/27/19 04:35 Neut # (Auto) 5.5 10^3/uL (1.5-6.6) 02/27/19 04:35 Lymph # (Auto) 2.0 10^3/uL (1.5-3.5) 02/27/19 04:35 Stone # (Auto) 0.6 10^3/uL (0.0-1.0) 02/27/19 04:35 Eos # (Auto) 0.1 10^3/uL (0.0-0.7) 02/27/19 04:35 Baso # (Auto) 0.1 10^3/uL (0.0-0.1) 02/27/19 04:35 Absolute Nucleated RBC 0.00 x10^3/uL 02/27/19 04:35 Nucleated RBC % 0.0 /100WBC 02/27/19 04:35 PT 12.1 secs (9.9-12.6) 02/26/19 14:36 INR 1.1 (0.8-1.2) 02/26/19 14:36 VBG pH 7.263 (7.31-7.41) L 02/26/19 19:21 VBG pCO2 45.7 mmHg (41-51) 02/26/19 19:21 VBG pO2 25.5 mmHg (25-47) 02/26/19 19:21 VBG HCO3 20.2 mmol/L (23-28) L 02/26/19 19:21 VBG Total CO2 21.6 mmol/L (24-29) L 02/26/19 19:21 VBG O2 Saturation 50.4 % (60-80) L 02/26/19 19:21 VBG Base Excess -6.7 mmol/L (-2 - +2) L 02/26/19 19:21 Sodium 135 mmol/L (135-145) 02/27/19 04:35 Potassium 4.5 mmol/L (3.5-5.0) 02/27/19 04:35 Chloride 107 mmol/L (101-111) 02/27/19 04:35 Carbon Dioxide 20 mmol/L (21-32) L 02/27/19 04:35 Anion Gap 8.0 (6-13) 02/27/19 04:35 BUN 26 mg/dL (6-20) H 02/27/19 04:35 Creatinine 2.1 mg/dL (0.6-1.2) H 02/27/19 04:35 Estimated GFR (MDRD) 30 (>89) L 02/27/19 04:35 Glucose 235 mg/dL (70-100) H 02/27/19 04:35 Glycated Hemoglobin 16.6 % (4.6-6.2) H 02/26/19 17:47 Estim Average Glucose 430 (70-100) H 02/26/19 17:47 Lactic Acid 1.9 mmol/L (0.5-2.2) 02/26/19 14:44 Calcium 7.9 mg/dL (8.5-10.3) L 02/27/19 04:35 Phosphorus 2.6 mg/dL (2.5-4.6) 02/27/19 04:35 Magnesium 1.9 mg/dL (1.7-2.8) 02/27/19 04:35 Iron 74 ug/dL (45-182) 02/26/19 17:47 TIBC 392 ug/dL (250-450) 02/26/19 17:47 % Saturation 19 % (20-50) L 02/26/19 17:47 Transferrin 280 mg/dL (180-329) 02/26/19 17:47 Total Bilirubin 0.5 mg/dL (0.2-1.0) 02/26/19 14:36 AST 26 IU/L (10-42) 02/26/19 14:36 ALT 23 IU/L (10-60) 02/26/19 14:36 Alkaline Phosphatase 200 IU/L (42-121) H 02/26/19 14:36 Total Creatine Kinase 81 IU/L (22-269) 02/26/19 14:36 CK-MB (CK-2) 3.6 ng/mL (0.6-6.3) 02/26/19 14:36 Troponin I < 0.04 ng/mL (<0.49) 02/26/19 21:03 Total Protein 6.7 g/dL (6.7-8.2) 02/26/19 14:36 Albumin 3.0 g/dL (3.2-5.5) L 02/26/19 14:36 Globulin 3.7 g/dL (2.1-4.2) 02/26/19 14:36 Albumin/Globulin Ratio 0.8 (1.0-2.2) L 02/26/19 14:36 Triglycerides 290 mg/dL (-149) H 02/27/19 04:35 Lipase 69 U/L (22-51) H 02/26/19 14:36 Vitamin B12 555 pg/mL (180-914) 02/26/19 14:36 Folate 6.42 ng/mL (5.90 - >24.8) 02/26/19 14:36 Urine Color YELLOW 02/26/19 23:02 Urine Clarity CLEAR (CLEAR) 02/26/19 23:02 Urine pH 6.5 PH (5.0-7.5) 02/26/19 23:02 Ur Specific Spencer 1.010 (1.002-1.030) 02/26/19 23:02 Urine Protein 100 mg/dL (NEGATIVE) H 02/26/19 23:02 Urine Glucose (UA) >=1000 mg/dL (NEGATIVE) H 02/26/19 23:02 Urine Ketones NEGATIVE mg/dL (NEGATIVE) 02/26/19 23:02 Urine Occult Blood SMALL (NEGATIVE) H 02/26/19 23:02 Urine Nitrite NEGATIVE (NEGATIVE) 02/26/19 23:02 Urine Bilirubin NEGATIVE (NEGATIVE) 02/26/19 23:02 Urine Urobilinogen 0.2 (NORMAL) E.U./dL (NORMAL) 02/26/19 23:02 Ur Leukocyte Esterase NEGATIVE (NEGATIVE) 02/26/19 23:02 Urine RBC 6-10 /HPF (0-5) H 02/26/19 23:02 Urine WBC 6-10 /HPF (0-3) H 02/26/19 23:02 Urine WBC Clumps PRESENT 02/26/19 15:05 Ur Squamous Epith Cells FEW Squamous (<= Few) 02/26/19 23:02 Urine Bacteria Few /HPF (None Seen) 02/26/19 23:02 Ur Microscopic Review INDICATED 02/26/19 23:02 Urine Culture Comments INDICATED 02/26/19 23:02 Nasal Screen MRSA (PCR) NEGATIVE (NEGATIVE) 02/26/19 16:30 Urine Opiates Screen NEGATIVE (NEGATIVE) 02/26/19 16:00 Ur Oxycodone Screen NEGATIVE (NEGATIVE) 02/26/19 16:00 Urine Methadone Screen NEGATIVE (NEGATIVE) 02/26/19 16:00 Ur Propoxyphene Screen NEGATIVE (NEGATIVE) 02/26/19 16:00 Ur Barbiturates Screen NEGATIVE (NEGATIVE) 02/26/19 16:00 Ur Tricyclics Screen NEGATIVE (NEGATIVE) 02/26/19 16:00 Ur Phencyclidine Scrn NEGATIVE (NEGATIVE) 02/26/19 16:00 Ur Amphetamine Screen NEGATIVE (NEGATIVE) 02/26/19 16:00 U Methamphetamines Scrn NEGATIVE (NEGATIVE) 02/26/19 16:00 U Benzodiazepines Scrn NEGATIVE (NEGATIVE) 02/26/19 16:00 Urine Cocaine Screen NEGATIVE (NEGATIVE) 02/26/19 16:00 U Cannabinoids Screen NEGATIVE (NEGATIVE) 02/26/19 16:00 Ethyl Alcohol < 5.0 mg/dL 02/26/19 14:36 Serum Ketones NEGATIVE (NEGATIVE) 02/26/19 14:36 Blood Type O POSITIVE 02/26/19 15:42 Blood Type Recheck O POSITIVE 02/26/19 14:36 Antibody Screen NEGATIVE 02/26/19 15:42
[2019-02-27 08:55] LABS: CHOL/HDL RATIO 6.4 (<5.0); CHOLESTEROL 178 mg/dL; HDL CHOLESTEROL 28 mg/dL; LDL CHOLESTEROL,CALCULATED 93 mg/dL; LDL/HDL RATIO 3.3 (<3.6); VLDL CHOLESTEROL 57 mg/dL
[2019-02-27 09:21] LABS: VBG BASE EXCESS -7.1 mmol/L (-2 - +2); VBG PCO2 39.3 mmHg (41-51); VBG PH 7.298 (7.31-7.41); VBG PO2 43.1 mmHg (25-47)
[2019-02-27] MEDS ORDERED: cefTRIAXone 2 GM VIAL IVP SCH (10:00)
[2019-02-27] MEDS: INSULIN GLARGINE 300 UNIT/3 ML PEN SUBQ SCH ×2 (10:37→21:04)
[2019-02-27] MEDS ORDERED: INSULIN ASPART 300 UNIT/3 ML PEN SUBQ ONE ×2 (11:46→19:19)
[2019-02-27] MEDS: cefTRIAXone 2 GM in SODIUM CHLORIDE 0.9% MINIBAG 100 ML IV SCH (12:04)
[2019-02-27] MEDS: INSULIN ASPART 300 UNIT/3 ML PEN SUBQ SCH ×3 (12:05→21:03)
--- NOTE | 2019-02-27 13:42 | Ultrasound Report ---
Reason: Near-syncope, cerebral ischemia on CT Procedure Date: 02/27/2019 Accession Number: [id number] / [id number] Procedure: US - Carotid Doppler Complete CPT Code: FULL RESULT: EXAM: BILATERAL CAROTID AND VERTEBRAL ARTERY DUPLEX DOPPLER ULTRASOUND: EXAM DATE: 02/27/2019 12:57 PM CLINICAL HISTORY: Near-syncope, cerebral ischemia on CT. COMPARISON: None. TECHNIQUE: Grayscale imaging, color Doppler, and duplex spectral Doppler were used to evaluate the carotid and vertebral arteries bilaterally. Static images were obtained. FINDINGS: There is bilateral mild calcified plaque in the carotid bulb and internal carotid arteries without high-grade stenosis visible on jason scale or color Doppler imaging. No velocity elevation. Carotid arteries are tortuous. Normal antegrade flow is present in bilateral vertebral arteries. VELOCITIES (cm/sec): Right CCA mid: PSV 37 cm/sec CCA dist: PSV 49 cm/sec ICA prox: PSV 45 cm/sec, EDV 10 cm/sec ICA mid: PSV 58 cm/sec, EDV 14 cm/sec ICA dist: PSV 67 cm/sec, EDV 14 cm/sec ECA: PSV 100 cm/sec Vert: PSV 41 cm/sec ICA/CCA: 1.36 Left CCA mid: PSV 50 cm/sec CCA dist: PSV 62 cm/sec ICA prox: PSV 46 cm/sec, EDV 11 cm/sec ICA mid: PSV 62 cm/sec, EDV 18 cm/sec ICA dist: PSV 42 cm/sec, EDV 11 cm/sec ECA: PSV 85 cm/sec Vert: PSV 45 cm/sec ICA/CCA: 1.0 ICA diameter stenosis: Right: <50% by velocity and <70% by NASCET criteria. Left: <50% by velocity and <70% by NASCET criteria. IMPRESSION: 1. Mild bilateral carotid artery plaquing. 2. In the right carotid artery there are no elevated carotid artery velocities to suggest hemodynamically significant stenosis. 3. In the left carotid artery there are no elevated carotid artery velocities to suggest hemodynamically significant stenosis. 4. Normal antegrade flow is present in bilateral vertebral arteries. General Recommendations: Stenosis =50% ICA - Follow-up ultrasound 6-12 months Stenosis <50% ICA - High Risk Patient with plaque - Follow-up ultrasound 1-2 years Normal Study but High Risk Patient - Follow-up ultrasound 3-5 years Management recommendations and diagnostic criteria are based on current IAC endorsed standards in Carotid Artery Stenosis: Grayscale and Doppler Ultrasound Diagnosis. Validated velocity measurements with angiographic measurements and velocity criteria are extrapolated from diameter data as defined by the Society of Radiologists in Ultrasound Consensus Conference Radiology 2003; 229;340-346. RADIA
--- NOTE | 2019-02-27 14:18 | CT Report ---
Reason: UTI, eval for pyeloneph or obstruction Procedure Date: 02/27/2019 Accession Number: [id number] / [id number] Procedure: CT - Abdomen/Pelvis WO CPT Code: FULL RESULT: EXAM: CT ABDOMEN AND PELVIS (CT KUB) EXAM DATE: 02/27/2019 10:20 AM. CLINICAL HISTORY: Urinary tract infection, evaluate for pyelonephritis or obstruction. COMPARISONS: None. TECHNIQUE: Routine axial helical CT imaging was performed through the abdomen and pelvis without IV contrast. Reconstructions: Coronal and sagittal. In accordance with CT protocol optimization, one or more of the following dose reduction techniques were utilized for this exam: automated exposure control, adjustment of mA and/or KV based on patient size, or use of iterative reconstructive technique. FINDINGS: Lung Bases: Unremarkable. Right Kidney/Ureter: There are at least 2 4-mm diameter calculi in the right kidney, one in the upper and the other in the lower pole calyces. There is mild dilation of the proximal right ureter. There is no perinephric fluid collection. Pyelonephritis cannot be excluded without IV contrast. Left Kidney/Ureter: Prior left nephrectomy. Other Solid Organs: There are calculi in the gallbladder. The liver, spleen and pancreas appear unremarkable. The adrenal glands appear unremarkable. Peritoneal Cavity: No free fluid, free air or chris adenopathy. Bowel is grossly unremarkable. Pelvic Organs: There is a posterior bladder diverticulum. The bladder is distended. The prostate gland does not appear enlarged, and measures 4.0 cm in maximum mediolateral diameter. The findings suggest chronic urinary retention. Vasculature: Unremarkable. Other: Moderate degenerative change at L2-L3 and L3-L4. IMPRESSION: 1. Bladder diverticulum. The bladder is distended suggestive of chronic bladder outlet obstruction. 2. 2 nonobstructive right renal calculi. No ureteric calculus on the right. Pyelonephritis cannot be excluded without IV contrast. RADIA
[2019-02-27] MEDS: QUEtiapine 25 MG TABLET PO SCH ×2 (19:50→21:03)
[2019-02-27] MEDS ORDERED: INSULIN REGULAR HUMAN 100 UNIT in SODIUM CHLORIDE 0.9% 100ML 99 ML IV ONE (20:55)
[2019-02-28] MEDS ORDERED: INSULIN GLARGINE 300 UNIT/3 ML PEN SUBQ STA (03:16)
[2019-02-28] MEDS: SODIUM CHLORIDE FLUSH 0.9% 10 ML SYRINGE IVP SCH ×3 (03:21→17:09)
[2019-02-28 05:10] LABS: BASOPHILS # (AUTO) 0.1 10^3/uL (0.0-0.1); BASOPHILS % (AUTO) 0.7 %; EOSINOPHILS # (AUTO) 0.1 10^3/uL (0.0-0.7); EOSINOPHILS % (AUTO) 1.6 %; HGB - HEMOGLOBIN 10.6 g/dL (14.0-18.0); LYMPHOCYTES # (AUTO) 1.9 10^3/uL (1.5-3.5); LYMPHOCYTES % (AUTO) 27.5 %; MEAN CORPUSCULAR HEMOGLOBIN 28.4 pg (27.0-31.0); MEAN CORPUSCULAR HGB CONC 31.5 g/dL (32.0-36.0); MEAN CORPUSCULAR VOLUME 90.1 fL (80.0-94.0); MEAN PLATELET VOLUME 11.9 fL (7.4-11.4); MONOCYTES # (AUTO) 0.5 10^3/uL (0.0-1.0); MONOCYTES % (AUTO) 7.7 %; NEUTROPHILS # (AUTO) 4.2 10^3/uL (1.5-6.6); NEUTROPHILS % (AUTO) 61.6 %; PLT - PLATELET COUNT 134 10^3/uL (130-450); RED BLOOD COUNT 3.73 10^6/uL (4.70-6.10); RED CELL DISTRIBUTION WIDTH 14.7 % (12.0-15.0); WHITE BLOOD COUNT 6.8 x10^3/uL (4.8-10.8)
[2019-02-28 05:15] LABS: CALCIUM 8.2 mg/dL (8.5-10.3); CREATININE 2.2 mg/dL (0.6-1.2)
[2019-02-28] MEDS: SODIUM CHLORIDE 0.9% 1,000 ML IV SCH ×3 (05:49→22:08)
[2019-02-28] MEDS: cefTRIAXone 2 GM in SODIUM CHLORIDE 0.9% MINIBAG 100 ML IV SCH (08:25)
[2019-02-28] MEDS: FAMOTIDINE 20 MG TABLET PO SCH (08:25)
[2019-02-28] MEDS: INSULIN ASPART 300 UNIT/3 ML PEN SUBQ SCH ×4 (08:35→21:22)
--- NOTE | 2019-02-28 08:40 | PROVIDER PROGRESS NOTE ---
Assessment/Plan - Problem List (1) DM (diabetes mellitus), type 2, uncontrolled Qualifiers: Glycemic state: with hyperglycemia Qualified Code(s): E11.65 - Type 2 diabetes mellitus with hyperglycemia (5) Fall Qualifiers: Encounter type: subsequent encounter Qualified Code(s): W19.XXXD - Unspecified fall, subsequent encounter - Current Meds Current Meds: Current Medications Generic Name Dose Route Start Last Admin Trade Name Freq PRN Reason Stop Dose Admin Famotidine 20 mg 02/28/19 09:00 02/28/19 08:25 Pepcid PO 20 mg DAILY DAVID Administration Sodium Chloride 1,000 mls @ 125 mls/hr 02/26/19 16:00 02/28/19 07:00 Normal Saline 0.9% IV 125 mls/hr .Q8H DAVID Infusion Ceftriaxone Sodium 2 gm/ 100 mls @ 200 mls/hr 02/27/19 12:00 02/28/19 08:25 Sodium Chloride IV 200 mls/hr DAILY DAVID Administration Insulin Aspart 3 - 11 unit 02/27/19 12:00 02/28/19 08:35 Novolog SUBQ Not Given 0800,1200,1700,2100 [facility] Protocol Insulin Glargine 10 unit 02/27/19 09:00 02/27/19 21:04 Lantus Solostar SUBQ Not Given BID DAVID Quetiapine Fumarate 25 mg 02/27/19 19:18 02/27/19 21:03 Seroquel PO Not Given QPM DAVID Sodium Chloride 10 ml 02/26/19 17:00 02/28/19 08:36 Normal Saline Flush 0.9% IVP 10 ml 0100,0900,1700 DAVID Administration - Lab Result Fish Bone Diagrams: 02/28/19 04:35 02/28/19 04:35 - Additional Planning My Orders: My Active Orders 02/27/19 08:00 Echo Transthoracic Complete [ECHO] Routine 02/27/19 08:35 IS [Incentive Spirometry - RT] [RC] .TID 02/27/19 08:37 Diabetic Education [RC] ONCE MAC Diabetic Ed E&M Levels [RC] .once 02/27/19 09:00 Insulin Glargine [Lantus Solostar] 10 unit SUBQ BID 02/27/19 09:02 Postural [Vital Signs - Orthostatic] [RC] QSHIFT 07/05/19 12:00 Insulin Aspart [NovoLOG] 3 - 11 unit SUBQ 0800,1200,1700,2100 cefTRIAXone [Rocephin] 2 gm Sodium Chloride 0.9% Minibag [Normal Saline 0.9% Minibag] 100 ml IV DAILY 02/27/19 19:18 QUEtiapine [SEROquel] 25 mg PO QPM 02/27/19 Lunch Carb-controlled Diet [DIET] 02/28/19 09:00 Famotidine [Pepcid] 20 mg PO DAILY 03/01/19 05:00 CBC - COMP BLD CT W/AUTO DIFF [HEME] DAILYLAB Objective Vital Signs: Vital Signs - 24 hr 02/27/19 02/27/19 02/27/19 10:08 10:36 11:00 Temperature Heart Rate [ 82 Activity] Heart Rate [ 66 71 Monitoring electrodes] Heart Rate [ Standing (After 1 Minute)] Heart Rate [ 62 Supine] Respiratory 18 16 Rate Respiratory Rate [Without Activity] Blood Pressure 153/123 H [Activity] Blood Pressure 154/73 H 156/69 H [Right Brachial artery] Blood Pressure [Standing ( After 1 Minute) ] Blood Pressure 156/69 H [Supine] O2 Saturation 96 95 O2 Saturation [ Without Activity] 02/27/19 02/27/19 02/27/19 13:00 15:03 15:06 Temperature 36.7 C Heart Rate [ Activity] Heart Rate [ 86 76 Monitoring electrodes] Heart Rate [ 86 Standing (After 1 Minute)] Heart Rate [ 80 Supine] Respiratory 17 18 Rate Respiratory Rate [Without Activity] Blood Pressure [Activity] Blood Pressure 171/92 H 161/77 H [Right Brachial artery] Blood Pressure 162/81 H [Standing ( After 1 Minute) ] Blood Pressure 161/77 H [Supine] O2 Saturation 97 O2 Saturation [ Without Activity] 02/27/19 02/27/19 02/27/19 16:00 16:46 16:50 Temperature 36.8 C Heart Rate [ 90 Activity] Heart Rate [ 79 Monitoring electrodes] Heart Rate [ Standing (After 1 Minute)] Heart Rate [ 90 Supine] Respiratory 16 Rate Respiratory 21 Rate [Without Activity] Blood Pressure 153/123 H [Activity] Blood Pressure 145/66 H [Right Brachial artery] Blood Pressure [Standing ( After 1 Minute) ] Blood Pressure 152/78 H [Supine] O2 Saturation 98 O2 Saturation [ 94 Without Activity] 02/27/19 02/27/19 02/27/19 18:19 19:00 21:00 Temperature 36.7 C 37.4 C Heart Rate [ Activity] Heart Rate [ 87 100 84 Monitoring electrodes] Heart Rate [ Standing (After 1 Minute)] Heart Rate [ Supine] Respiratory 25 H 24 22 Rate Respiratory Rate [Without Activity] Blood Pressure [Activity] Blood Pressure 164/86 H 156/95 H [Right Brachial artery] Blood Pressure [Standing ( After 1 Minute) ] Blood Pressure [Supine] O2 Saturation 95 O2 Saturation [ Without Activity] 02/27/19 02/27/19 02/28/19 22:09 23:00 01:00 Temperature Heart Rate [ Activity] Heart Rate [ 91 66 83 Monitoring electrodes] Heart Rate [ Standing (After 1 Minute)] Heart Rate [ Supine] Respiratory 22 16 14 Rate Respiratory Rate [Without Activity] Blood Pressure [Activity] Blood Pressure 136/84 H 116/60 139/74 H [Right Brachial artery] Blood Pressure [Standing ( After 1 Minute) ] Blood Pressure [Supine] O2 Saturation 95 O2 Saturation [ Without Activity] 02/28/19 02/28/19 02/28/19 03:00 05:00 05:27 Temperature 37.4 C Heart Rate [ Activity] Heart Rate [ 84 85 87 Monitoring electrodes] Heart Rate [ Standing (After 1 Minute)] Heart Rate [ Supine] Respiratory 19 18 17 Rate Respiratory Rate [Without Activity] Blood Pressure [Activity] Blood Pressure 112/80 84/59 L [Right Brachial artery] Blood Pressure [Standing ( After 1 Minute) ] Blood Pressure [Supine] O2 Saturation 97 96 O2 Saturation [ Without Activity] 02/28/19 07:00 Temperature Heart Rate [ Activity] Heart Rate [ 70 Monitoring electrodes] Heart Rate [ Standing (After 1 Minute)] Heart Rate [ Supine] Respiratory 15 Rate Respiratory Rate [Without Activity] Blood Pressure [Activity] Blood Pressure 140/76 H [Right Brachial artery] Blood Pressure [Standing ( After 1 Minute) ] Blood Pressure [Supine] O2 Saturation 94 O2 Saturation [ Without Activity] Oxygen O2 Source [Without Activity] Room air O2 Source Room air I&O (Last 24 Hrs): Intake and Output Totals x24h 02/26/19 02/27/19 02/28/19 23:59 23:59 23:59 Intake Total 2208.447 4742.377 1760.168 Output Total 650 2750 Balance 0580.539 7495.377 1760.168 - Results Results: Laboratory Results WBC 6.8 x10^3/uL (4.8-10.8) 02/28/19 04:35 RBC 3.73 10^6/uL (4.70-6.10) L 02/28/19 04:35 Hgb 10.6 g/dL (14.0-18.0) L 02/28/19 04:35 Hct 33.6 % (42.0-52.0) L 02/28/19 04:35 MCV 90.1 fL (80.0-94.0) 02/28/19 04:35 MCH 28.4 pg (27.0-31.0) 02/28/19 04:35 MCHC 31.5 g/dL (32.0-36.0) L 02/28/19 04:35 RDW 14.7 % (12.0-15.0) 02/28/19 04:35 Plt Count 134 10^3/uL (130-450) 02/28/19 04:35 MPV 11.9 fL (7.4-11.4) H 02/28/19 04:35 Neut # (Auto) 4.2 10^3/uL (1.5-6.6) 02/28/19 04:35 Lymph # (Auto) 1.9 10^3/uL (1.5-3.5) 02/28/19 04:35 Quay # (Auto) 0.5 10^3/uL (0.0-1.0) 02/28/19 04:35 Eos # (Auto) 0.1 10^3/uL (0.0-0.7) 02/28/19 04:35 Baso # (Auto) 0.1 10^3/uL (0.0-0.1) 02/28/19 04:35 Absolute Nucleated RBC 0.00 x10^3/uL 02/28/19 04:35 Nucleated RBC % 0.0 /100WBC 02/28/19 04:35 PT 12.1 secs (9.9-12.6) 02/26/19 14:36 INR 1.1 (0.8-1.2) 02/26/19 14:36 VBG pH 7.298 (7.31-7.41) L 02/27/19 09:05 VBG pCO2 39.3 mmHg (41-51) L 02/27/19 09:05 VBG pO2 43.1 mmHg (25-47) 02/27/19 09:05 VBG HCO3 18.8 mmol/L (23-28) L 02/27/19 09:05 VBG Total CO2 20.0 mmol/L (24-29) L 02/27/19 09:05 VBG O2 Saturation 83.6 % (60-80) H 02/27/19 09:05 VBG Base Excess -7.1 mmol/L (-2 - +2) L 02/27/19 09:05 Sodium 140 mmol/L (135-145) 02/28/19 04:35 Potassium 4.1 mmol/L (3.5-5.0) 02/28/19 04:35 Chloride 111 mmol/L (101-111) 02/28/19 04:35 Carbon Dioxide 19 mmol/L (21-32) L 02/28/19 04:35 Anion Gap 10.0 (6-13) 02/28/19 04:35 BUN 28 mg/dL (6-20) H 02/28/19 04:35 Creatinine 2.2 mg/dL (0.6-1.2) H 02/28/19 04:35 Estimated GFR (MDRD) 29 (>89) L 02/28/19 04:35 Glucose 138 mg/dL (70-100) H 02/28/19 04:35 Glycated Hemoglobin 16.6 % (4.6-6.2) H 02/26/19 17:47 Estim Average Glucose 430 (70-100) H 02/26/19 17:47 Lactic Acid 1.9 mmol/L (0.5-2.2) 02/26/19 14:44 Calcium 8.2 mg/dL (8.5-10.3) L 02/28/19 04:35 Phosphorus 2.6 mg/dL (2.5-4.6) 02/27/19 04:35 Magnesium 2.0 mg/dL (1.7-2.8) 02/28/19 04:35 Iron 74 ug/dL (45-182) 02/26/19 17:47 TIBC 392 ug/dL (250-450) 02/26/19 17:47 % Saturation 19 % (20-50) L 02/26/19 17:47 Transferrin 280 mg/dL (180-329) 02/26/19 17:47 Total Bilirubin 0.5 mg/dL (0.2-1.0) 02/26/19 14:36 AST 26 IU/L (10-42) 02/26/19 14:36 ALT 23 IU/L (10-60) 02/26/19 14:36 Alkaline Phosphatase 200 IU/L (42-121) H 02/26/19 14:36 Total Creatine Kinase 81 IU/L (22-269) 02/26/19 14:36 CK-MB (CK-2) 3.6 ng/mL (0.6-6.3) 02/26/19 14:36 Troponin I < 0.04 ng/mL (<0.49) 02/26/19 21:03 Total Protein 6.7 g/dL (6.7-8.2) 02/26/19 14:36 Albumin 3.0 g/dL (3.2-5.5) L 02/26/19 14:36 Globulin 3.7 g/dL (2.1-4.2) 02/26/19 14:36 Albumin/Globulin Ratio 0.8 (1.0-2.2) L 02/26/19 14:36 Triglycerides 284 mg/dL (-149) H 02/27/19 04:35 Cholesterol 178 mg/dL (-199) 02/27/19 04:35 LDL Cholesterol, Calc 93 mg/dL (-129) 02/27/19 04:35 VLDL Cholesterol 57 mg/dL 02/27/19 04:35 HDL Cholesterol 28 mg/dL (60-) L 02/27/19 04:35 LDL/HDL Ratio 3.3 (<3.6) 02/27/19 04:35 Cholesterol/HDL Ratio 6.4 (<5.0) 02/27/19 04:35 Lipase 69 U/L (22-51) H 02/26/19 14:36 Vitamin B12 555 pg/mL (180-914) 02/26/19 14:36 Folate 6.42 ng/mL (5.90 - >24.8) 02/26/19 14:36 Urine Color YELLOW 02/26/19 23:02 Urine Clarity CLEAR (CLEAR) 02/26/19 23:02 Urine pH 6.5 PH (5.0-7.5) 02/26/19 23:02 Ur Specific Phillips 1.010 (1.002-1.030) 02/26/19 23:02 Urine Protein 100 mg/dL (NEGATIVE) H 02/26/19 23:02 Urine Glucose (UA) >=1000 mg/dL (NEGATIVE) H 02/26/19 23:02 Urine Ketones NEGATIVE mg/dL (NEGATIVE) 02/26/19 23:02 Urine Occult Blood SMALL (NEGATIVE) H 02/26/19 23:02 Urine Nitrite NEGATIVE (NEGATIVE) 02/26/19 23:02 Urine Bilirubin NEGATIVE (NEGATIVE) 02/26/19 23:02 Urine Urobilinogen 0.2 (NORMAL) E.U./dL (NORMAL) 02/26/19 23:02 Ur Leukocyte Esterase NEGATIVE (NEGATIVE) 02/26/19 23:02 Urine RBC 6-10 /HPF (0-5) H 02/26/19 23:02 Urine WBC 6-10 /HPF (0-3) H 02/26/19 23:02 Urine WBC Clumps PRESENT 02/26/19 15:05 Ur Squamous Epith Cells FEW Squamous (<= Few) 02/26/19 23:02 Urine Bacteria Few /HPF (None Seen) 02/26/19 23:02 Ur Microscopic Review INDICATED 02/26/19 23:02 Urine Culture Comments INDICATED 02/26/19 23:02 Nasal Screen MRSA (PCR) NEGATIVE (NEGATIVE) 02/26/19 16:30 Urine Opiates Screen NEGATIVE (NEGATIVE) 02/26/19 16:00 Ur Oxycodone Screen NEGATIVE (NEGATIVE) 02/26/19 16:00 Urine Methadone Screen NEGATIVE (NEGATIVE) 02/26/19 16:00 Ur Propoxyphene Screen NEGATIVE (NEGATIVE) 02/26/19 16:00 Ur Barbiturates Screen NEGATIVE (NEGATIVE) 02/26/19 16:00 Ur Tricyclics Screen NEGATIVE (NEGATIVE) 02/26/19 16:00 Ur Phencyclidine Scrn NEGATIVE (NEGATIVE) 02/26/19 16:00 Ur Amphetamine Screen NEGATIVE (NEGATIVE) 02/26/19 16:00 U Methamphetamines Scrn NEGATIVE (NEGATIVE) 02/26/19 16:00 U Benzodiazepines Scrn NEGATIVE (NEGATIVE) 02/26/19 16:00 Urine Cocaine Screen NEGATIVE (NEGATIVE) 02/26/19 16:00 U Cannabinoids Screen NEGATIVE (NEGATIVE) 02/26/19 16:00 Ethyl Alcohol < 5.0 mg/dL 02/26/19 14:36 Serum Ketones NEGATIVE (NEGATIVE) 02/26/19 14:36 Blood Type O POSITIVE 02/26/19 15:42 Blood Type Recheck O POSITIVE 02/26/19 14:36 Antibody Screen NEGATIVE 02/26/19 15:42
[2019-02-28] MEDS: INSULIN GLARGINE 300 UNIT/3 ML PEN SUBQ SCH ×2 (08:54→21:22)
--- NOTE | 2019-02-28 14:36 | PROVIDER PROGRESS NOTE ---
Assessment/Plan - Problem List (1) DM (diabetes mellitus), type 2, uncontrolled Qualifiers: Glycemic state: with hyperglycemia Qualified Code(s): E11.65 - Type 2 diabetes mellitus with hyperglycemia Assessment/Plan: He continues to have poor glucose control, glucose levels of 400-500. He required IV insulin drip again for about 6 hours overnight. His long-acting Lantus insulin dose is being increased. Sliding scale Reg insulin dose to cover for fingerstick checks is now at high scale. Diabetic teaching was attempted yesterday but occurred right when he was ing therefore not successful. Plan continued management as currently ordered with carb-controlled diet and Insulin. (2) UTI (urinary tract infection) Assessment/Plan: 2 urinalyses were done that showed bacteria and cultures are indicated. Abdomen and pelvis imaging was indeterminate for pyelonephritis, there was description of obstruction presumably from BPH. There are also 2 nonobstructing stones present. Urine cultures have grown mixed kenia, suggesting skin contaminant. Blood cx are neg to date. Will treat empirically for a gram-negative UTI with a 21-day course. Will change to empiric iv Rocephin p.o. antibiotics starting tomorrow, using TMP/Sulfa 1 po bid for 18 more days. (3) Noncompliance with diabetes treatment Assessment/Plan: This is likely multifactorial: he is probably depressed, has cerebral ischemia seen on brain CT (dementia), and has been hyperosmolar and dehydrated. The family suspects that he has no will to live since his in June 2018, therefore is not taking his Diabetic (and other) meds. There is also note that the patient "is afraid of needles". Other information is that the patient vehemently refuses any insulin use, already known by the PCP. If he goes to a fdc, Insulin will be administered for him. [facility] diabetic teaching consult has been requested to determine best realistic diabetic management for him. Social work consult has been requested regarding possible depression or continued grieving. He is not a safe discharge to living alone at home, social work will need to address this as well. (4) Dementia Assessment/Plan: Brain CT showed evidence of diffuse chronic ischemic disease. Likely causes are very poorly controlled DM, HTN uncontrolled and hyperlipidemia. Carotid Doppler showed mild-moderate plaque and Echo had no clots. He Sundowns and has paranoia (per Social Work eval), consistent with Dementia. Serquel was dosed yesterday. Will continue scheduled Seroquel every evening. (5) Near syncope Assessment/Plan: He was probably orthostatic leading to the near syncope before admission. CT of the brain showed evidence of cerebral ischemia, chronic, and no acute findings. His BUN and creatinine increased today, suggesting he is still volume depleted With PT, will check orthostatic vital signs while here (6) Renal insufficiency Assessment/Plan: Patient has one kidney, is status post nephrectomy for renal cell carcinoma remotely. His baseline creatinine is unknown however. There are no creat lab results in [facility] even. BUN and creatinine increased since yesterday after there was improvement. Continue with IV hydration and avoid nephrotoxic agents. As such his Metformin will not be restarted yet. The IV rate will be increased, now that the Echo was done and reveals no cardiomyopathy and no valvular stenosis. (7) Anemia Assessment/Plan: Anemia is of concern since he was hemoconcentrated from dehydration at admission B12, folate, iron panel were adequate. This suggests anemia of chronic disease (possibly his CKD). Follow CBC daily, and he may need transfusion if the hemoglobin drops below 7 or 8 and he is symptomatic (8) Atelectasis of both lungs Assessment/Plan: Ysterday CXR is showing either a developing CAP or atelectasis. Incentive Spirometry ordered tid. 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 Will consider a nuclear scan of skeleton to evaluate. The abdomen CT will also evaluate the biliary tree, liver and pancreas where abnormalities s may also cause elevated alk phos - Current Meds Current Meds: Current Medications Generic Name Dose Route Start Last Admin Trade Name Freq PRN Reason Stop Dose Admin Famotidine 20 mg 02/28/19 09:00 02/28/19 08:25 Pepcid PO 20 mg DAILY DAVID Administration Sodium Chloride 1,000 mls @ 125 mls/hr 02/26/19 16:00 02/28/19 14:20 Normal Saline 0.9% IV 125 mls/hr .Q8H DAVID Administration Ceftriaxone Sodium 2 gm/ 100 mls @ 200 mls/hr 02/27/19 12:00 02/28/19 08:55 Sodium Chloride IV Infused DAILY DAVID Infusion Insulin Aspart 3 - 11 unit 02/27/19 12:00 02/28/19 11:54 Novolog SUBQ 11 unit 0800,1200,1700,2100 DAVID Administration Protocol Insulin Glargine 10 unit 02/27/19 09:00 02/28/19 08:54 Lantus Solostar SUBQ 10 unit BID DAVID Administration Quetiapine Fumarate 25 mg 02/27/19 19:18 02/27/19 21:03 Seroquel PO Not Given QPM DAVID Sodium Chloride 10 ml 02/26/19 17:00 02/28/19 08:36 Normal Saline Flush 0.9% IVP 10 ml 0100,0900,1700 DAVID Administration - Lab Result Fish Bone Diagrams: 02/28/19 04:35 02/28/19 04:35 - Additional Planning My Orders: My Active Orders 02/27/19 19:18 QUEtiapine [SEROquel] 25 mg PO QPM 02/28/19 09:00 Famotidine [Pepcid] 20 mg PO DAILY 03/01/19 05:00 CBC - COMP BLD CT W/AUTO DIFF [HEME] DAILYLAB Subjective - Subjective Patient Reports: Resting Comfortably Nursing Reports: Other (He was confused and agitated late last night) Objective Vital Signs: Vital Signs - 24 hr 02/27/19 02/27/19 02/27/19 15:03 15:06 16:00 Temperature 36.7 C Heart Rate [ Activity] Heart Rate [ 76 79 Monitoring electrodes] Heart Rate [ Sitting (After 1 Minute)] Heart Rate [ 86 Standing (After 1 Minute)] Heart Rate [ 80 Supine] Respiratory 18 Rate Respiratory Rate [Without Activity] Blood Pressure [Activity] Blood Pressure 161/77 H 145/66 H [Right Brachial artery] Blood Pressure [Sitting (After 1 Minute)] Blood Pressure 162/81 H [Standing ( After 1 Minute) ] Blood Pressure 161/77 H [Supine] O2 Saturation 97 O2 Saturation [ Without Activity] 02/27/19 02/27/19 02/27/19 16:46 16:50 18:19 Temperature 36.8 C 36.7 C Heart Rate [ 90 Activity] Heart Rate [ 87 Monitoring electrodes] Heart Rate [ Sitting (After 1 Minute)] Heart Rate [ Standing (After 1 Minute)] Heart Rate [ 90 Supine] Respiratory 16 25 H Rate Respiratory 21 Rate [Without Activity] Blood Pressure 153/123 H [Activity] Blood Pressure 164/86 H [Right Brachial artery] Blood Pressure [Sitting (After 1 Minute)] Blood Pressure [Standing ( After 1 Minute) ] Blood Pressure 152/78 H [Supine] O2 Saturation 98 O2 Saturation [ 94 Without Activity] 02/27/19 02/27/19 02/27/19 19:00 21:00 22:09 Temperature 37.4 C Heart Rate [ Activity] Heart Rate [ 100 84 91 Monitoring electrodes] Heart Rate [ Sitting (After 1 Minute)] Heart Rate [ Standing (After 1 Minute)] Heart Rate [ Supine] Respiratory 24 22 22 Rate Respiratory Rate [Without Activity] Blood Pressure [Activity] Blood Pressure 156/95 H 136/84 H [Right Brachial artery] Blood Pressure [Sitting (After 1 Minute)] Blood Pressure [Standing ( After 1 Minute) ] Blood Pressure [Supine] O2 Saturation 95 O2 Saturation [ Without Activity] 02/27/19 02/28/19 02/28/19 23:00 01:00 03:00 Temperature Heart Rate [ Activity] Heart Rate [ 66 83 84 Monitoring electrodes] Heart Rate [ Sitting (After 1 Minute)] Heart Rate [ Standing (After 1 Minute)] Heart Rate [ Supine] Respiratory 16 14 19 Rate Respiratory Rate [Without Activity] Blood Pressure [Activity] Blood Pressure 116/60 139/74 H 112/80 [Right Brachial artery] Blood Pressure [Sitting (After 1 Minute)] Blood Pressure [Standing ( After 1 Minute) ] Blood Pressure [Supine] O2 Saturation 95 O2 Saturation [ Without Activity] 02/28/19 02/28/19 02/28/19 05:00 05:27 07:00 Temperature 37.4 C Heart Rate [ Activity] Heart Rate [ 85 87 70 Monitoring electrodes] Heart Rate [ Sitting (After 1 Minute)] Heart Rate [ Standing (After 1 Minute)] Heart Rate [ Supine] Respiratory 18 17 15 Rate Respiratory Rate [Without Activity] Blood Pressure [Activity] Blood Pressure 84/59 L 140/76 H [Right Brachial artery] Blood Pressure [Sitting (After 1 Minute)] Blood Pressure [Standing ( After 1 Minute) ] Blood Pressure [Supine] O2 Saturation 97 96 94 O2 Saturation [ Without Activity] 02/28/19 02/28/19 02/28/19 10:00 10:50 11:00 Temperature 36.4 C L Heart Rate [ Activity] Heart Rate [ 66 62 Monitoring electrodes] Heart Rate [ 64 Sitting (After 1 Minute)] Heart Rate [ 67 Standing (After 1 Minute)] Heart Rate [ 65 Supine] Respiratory 17 18 Rate Respiratory Rate [Without Activity] Blood Pressure [Activity] Blood Pressure 142/79 H 149/78 H [Right Brachial artery] Blood Pressure 143/93 H [Sitting (After 1 Minute)] Blood Pressure 147/81 H [Standing ( After 1 Minute) ] Blood Pressure 141/76 H [Supine] O2 Saturation 96 99 O2 Saturation [ Without Activity] 02/28/19 13:00 Temperature Heart Rate [ Activity] Heart Rate [ 64 Monitoring electrodes] Heart Rate [ Sitting (After 1 Minute)] Heart Rate [ Standing (After 1 Minute)] Heart Rate [ Supine] Respiratory 20 Rate Respiratory Rate [Without Activity] Blood Pressure [Activity] Blood Pressure 164/69 H [Right Brachial artery] Blood Pressure [Sitting (After 1 Minute)] Blood Pressure [Standing ( After 1 Minute) ] Blood Pressure [Supine] O2 Saturation 96 O2 Saturation [ Without Activity] Oxygen O2 Source [Without Activity] Room air O2 Source Room air I&O (Last 24 Hrs): Intake and Output Totals x24h 02/26/19 02/27/19 02/28/19 23:59 23:59 23:59 Intake Total 2208.447 4742.377 3512.316 Output Total 650 2750 525 Balance 5607.597 9396.377 2987.316 General: Alert, No acute distress HEENT: Mucous membr. moist/pink Neck: Supple Neuro: Alert, Non Focal Cardiovascular: Regular rate Respiratory: No respiratory distress Abdomen: Soft Extremities: No edema - Results Results: Laboratory Results WBC 6.8 x10^3/uL (4.8-10.8) 02/28/19 04:35 RBC 3.73 10^6/uL (4.70-6.10) L 02/28/19 04:35 Hgb 10.6 g/dL (14.0-18.0) L 02/28/19 04:35 Hct 33.6 % (42.0-52.0) L 02/28/19 04:35 MCV 90.1 fL (80.0-94.0) 02/28/19 04:35 MCH 28.4 pg (27.0-31.0) 02/28/19 04:35 MCHC 31.5 g/dL (32.0-36.0) L 02/28/19 04:35 RDW 14.7 % (12.0-15.0) 02/28/19 04:35 Plt Count 134 10^3/uL (130-450) 02/28/19 04:35 MPV 11.9 fL (7.4-11.4) H 02/28/19 04:35 Neut # (Auto) 4.2 10^3/uL (1.5-6.6) 02/28/19 04:35 Lymph # (Auto) 1.9 10^3/uL (1.5-3.5) 02/28/19 04:35 Tucker # (Auto) 0.5 10^3/uL (0.0-1.0) 02/28/19 04:35 Eos # (Auto) 0.1 10^3/uL (0.0-0.7) 02/28/19 04:35 Baso # (Auto) 0.1 10^3/uL (0.0-0.1) 02/28/19 04:35 Absolute Nucleated RBC 0.00 x10^3/uL 02/28/19 04:35 Nucleated RBC % 0.0 /100WBC 02/28/19 04:35 PT 12.1 secs (9.9-12.6) 02/26/19 14:36 INR 1.1 (0.8-1.2) 02/26/19 14:36 VBG pH 7.298 (7.31-7.41) L 02/27/19 09:05 VBG pCO2 39.3 mmHg (41-51) L 02/27/19 09:05 VBG pO2 43.1 mmHg (25-47) 02/27/19 09:05 VBG HCO3 18.8 mmol/L (23-28) L 02/27/19 09:05 VBG Total CO2 20.0 mmol/L (24-29) L 02/27/19 09:05 VBG O2 Saturation 83.6 % (60-80) H 02/27/19 09:05 VBG Base Excess -7.1 mmol/L (-2 - +2) L 02/27/19 09:05 Sodium 140 mmol/L (135-145) 02/28/19 04:35 Potassium 4.1 mmol/L (3.5-5.0) 02/28/19 04:35 Chloride 111 mmol/L (101-111) 02/28/19 04:35 Carbon Dioxide 19 mmol/L (21-32) L 02/28/19 04:35 Anion Gap 10.0 (6-13) 02/28/19 04:35 BUN 28 mg/dL (6-20) H 02/28/19 04:35 Creatinine 2.2 mg/dL (0.6-1.2) H 02/28/19 04:35 Estimated GFR (MDRD) 29 (>89) L 02/28/19 04:35 Glucose 138 mg/dL (70-100) H 02/28/19 04:35 Glycated Hemoglobin 16.6 % (4.6-6.2) H 02/26/19 17:47 Estim Average Glucose 430 (70-100) H 02/26/19 17:47 Lactic Acid 1.9 mmol/L (0.5-2.2) 02/26/19 14:44 Calcium 8.2 mg/dL (8.5-10.3) L 02/28/19 04:35 Phosphorus 2.6 mg/dL (2.5-4.6) 02/27/19 04:35 Magnesium 2.0 mg/dL (1.7-2.8) 02/28/19 04:35 Iron 74 ug/dL (45-182) 02/26/19 17:47 TIBC 392 ug/dL (250-450) 02/26/19 17:47 % Saturation 19 % (20-50) L 02/26/19 17:47 Transferrin 280 mg/dL (180-329) 02/26/19 17:47 Total Bilirubin 0.5 mg/dL (0.2-1.0) 02/26/19 14:36 AST 26 IU/L (10-42) 02/26/19 14:36 ALT 23 IU/L (10-60) 02/26/19 14:36 Alkaline Phosphatase 200 IU/L (42-121) H 02/26/19 14:36 Total Creatine Kinase 81 IU/L (22-269) 02/26/19 14:36 CK-MB (CK-2) 3.6 ng/mL (0.6-6.3) 02/26/19 14:36 Troponin I < 0.04 ng/mL (<0.49) 02/26/19 21:03 Total Protein 6.7 g/dL (6.7-8.2) 02/26/19 14:36 Albumin 3.0 g/dL (3.2-5.5) L 02/26/19 14:36 Globulin 3.7 g/dL (2.1-4.2) 02/26/19 14:36 Albumin/Globulin Ratio 0.8 (1.0-2.2) L 02/26/19 14:36 Triglycerides 284 mg/dL (-149) H 02/27/19 04:35 Cholesterol 178 mg/dL (-199) 02/27/19 04:35 LDL Cholesterol, Calc 93 mg/dL (-129) 02/27/19 04:35 VLDL Cholesterol 57 mg/dL 02/27/19 04:35 HDL Cholesterol 28 mg/dL (60-) L 02/27/19 04:35 LDL/HDL Ratio 3.3 (<3.6) 02/27/19 04:35 Cholesterol/HDL Ratio 6.4 (<5.0) 02/27/19 04:35 Lipase 69 U/L (22-51) H 02/26/19 14:36 Vitamin B12 555 pg/mL (180-914) 02/26/19 14:36 Folate 6.42 ng/mL (5.90 - >24.8) 02/26/19 14:36 Urine Color YELLOW 02/26/19 23:02 Urine Clarity CLEAR (CLEAR) 02/26/19 23:02 Urine pH 6.5 PH (5.0-7.5) 02/26/19 23:02 Ur Specific [place] 1.010 (1.002-1.030) 02/26/19 23:02 Urine Protein 100 mg/dL (NEGATIVE) H 02/26/19 23:02 Urine Glucose (UA) >=1000 mg/dL (NEGATIVE) H 02/26/19 23:02 Urine Ketones NEGATIVE mg/dL (NEGATIVE) 02/26/19 23:02 Urine Occult Blood SMALL (NEGATIVE) H 02/26/19 23:02 Urine Nitrite NEGATIVE (NEGATIVE) 02/26/19 23:02 Urine Bilirubin NEGATIVE (NEGATIVE) 02/26/19 23:02 Urine Urobilinogen 0.2 (NORMAL) E.U./dL (NORMAL) 02/26/19 23:02 Ur Leukocyte Esterase NEGATIVE (NEGATIVE) 02/26/19 23:02 Urine RBC 6-10 /HPF (0-5) H 02/26/19 23:02 Urine WBC 6-10 /HPF (0-3) H 02/26/19 23:02 Urine WBC Clumps PRESENT 02/26/19 15:05 Ur Squamous Epith Cells FEW Squamous (<= Few) 02/26/19 23:02 Urine Bacteria Few /HPF (None Seen) 02/26/19 23:02 Ur Microscopic Review INDICATED 02/26/19 23:02 Urine Culture Comments INDICATED 02/26/19 23:02 Nasal Screen MRSA (PCR) NEGATIVE (NEGATIVE) 02/26/19 16:30 Urine Opiates Screen NEGATIVE (NEGATIVE) 02/26/19 16:00 Ur Oxycodone Screen NEGATIVE (NEGATIVE) 02/26/19 16:00 Urine Methadone Screen NEGATIVE (NEGATIVE) 02/26/19 16:00 Ur Propoxyphene Screen NEGATIVE (NEGATIVE) 02/26/19 16:00 Ur Barbiturates Screen NEGATIVE (NEGATIVE) 02/26/19 16:00 Ur Tricyclics Screen NEGATIVE (NEGATIVE) 02/26/19 16:00 Ur Phencyclidine Scrn NEGATIVE (NEGATIVE) 02/26/19 16:00 Ur Amphetamine Screen NEGATIVE (NEGATIVE) 02/26/19 16:00 U Methamphetamines Scrn NEGATIVE (NEGATIVE) 02/26/19 16:00 U Benzodiazepines Scrn NEGATIVE (NEGATIVE) 02/26/19 16:00 Urine Cocaine Screen NEGATIVE (NEGATIVE) 02/26/19 16:00 U Cannabinoids Screen NEGATIVE (NEGATIVE) 02/26/19 16:00 Ethyl Alcohol < 5.0 mg/dL 02/26/19 14:36 Serum Ketones NEGATIVE (NEGATIVE) 02/26/19 14:36 Blood Type O POSITIVE 02/26/19 15:42 Blood Type Recheck O POSITIVE 02/26/19 14:36 Antibody Screen NEGATIVE 02/26/19 15:42
[2019-02-28] MEDS: QUEtiapine 25 MG TABLET PO SCH (21:21)
[2019-02-28] MEDS: SULFAMETH/TRIMETH DS 800/160 MG TABLET PO SCH (21:22)
[2019-03-01] MEDS: SODIUM CHLORIDE FLUSH 0.9% 10 ML SYRINGE IVP SCH ×4 (02:41→23:46)
[2019-03-01 04:52] LABS: BASOPHILS % (AUTO) 0.5 %; EOSINOPHILS # (AUTO) 0.2 10^3/uL (0.0-0.7); EOSINOPHILS % (AUTO) 2.3 %; HGB - HEMOGLOBIN 10.7 g/dL (14.0-18.0); LYMPHOCYTES % (AUTO) 31.5 %; MEAN CORPUSCULAR HEMOGLOBIN 28.8 pg (27.0-31.0); MEAN CORPUSCULAR HGB CONC 31.7 g/dL (32.0-36.0); MEAN CORPUSCULAR VOLUME 90.9 fL (80.0-94.0); MEAN PLATELET VOLUME 11.9 fL (7.4-11.4); MONOCYTES # (AUTO) 0.6 10^3/uL (0.0-1.0); MONOCYTES % (AUTO) 8.8 %; NEUTROPHILS # (AUTO) 3.6 10^3/uL (1.5-6.6); NEUTROPHILS % (AUTO) 55.7 %; PLT - PLATELET COUNT 137 10^3/uL (130-450); RED BLOOD COUNT 3.72 10^6/uL (4.70-6.10); RED CELL DISTRIBUTION WIDTH 15.3 % (12.0-15.0); WHITE BLOOD COUNT 6.5 x10^3/uL (4.8-10.8)
[2019-03-01 04:58] LABS: CALCIUM 8.1 mg/dL (8.5-10.3); CREATININE 2.2 mg/dL (0.6-1.2)
[2019-03-01] MEDS: SODIUM CHLORIDE 0.9% 1,000 ML IV SCH (06:30)
[2019-03-01] MEDS: INSULIN ASPART 300 UNIT/3 ML PEN SUBQ SCH ×5 (07:55→20:42)
[2019-03-01] MEDS: FAMOTIDINE 20 MG TABLET PO SCH (08:03)
[2019-03-01] MEDS: SULFAMETH/TRIMETH DS 800/160 MG TABLET PO SCH ×2 (08:03→20:43)
[2019-03-01] MEDS: LACTOBACILLUS RHAMNOSUS GG CAPSULE PO SCH (08:03)
[2019-03-01] MEDS: INSULIN GLARGINE 300 UNIT/3 ML PEN SUBQ SCH ×2 (09:04→20:41)
--- NOTE | 2019-03-01 14:23 | PROVIDER PROGRESS NOTE ---
Assessment/Plan - Problem List (1) DM (diabetes mellitus), type 2, uncontrolled Qualifiers: Glycemic state: with hyperglycemia Qualified Code(s): E11.65 - Type 2 diabetes mellitus with hyperglycemia Assessment/Plan: Admitted for hyperglycemia secondary to medication non-compliance. No longer requiring IV insulin infusion. Blood glucose better controlled but still not optimized as they have been >200. - Increase Lantus 12U BID, add Novolog 5 units with meals, continue sliding scale - CC diet - Will require assisted living on discharge as he is unable to administer insulin himself (2) UTI (urinary tract infection) Assessment/Plan: Initial urinalysis revealed pyuria although cultures grew mixed kenia. CT of the abdomen/pelvis was indeterminate for pyelonephritis but was suggestive of chronic urinary retention He received IV Ceftriaxone initially and has since been transitioned to Bactrim PO Blood cultures negative to date - Continue Bactrim PO for now but will need to monitor potassium and renal function - Will likely discharge on a 14 day course of antibiotics for presumed pyelonephritis (3) Anemia Assessment/Plan: Likely anemia of chronic disease in the setting of renal insufficiency. Hemoglobin is stable without signs of bleeding. Iron studies, B12, Folic were unremarkable. - Daily CBC and monitor for signs of bleeding (4) Dementia Assessment/Plan: CT of the head with evidence of chronic ischemic disease disease but not acute process. His dementia appears to be vascular in nature. Alert and oriented this morning. Tolerating Seroquel. - Continue Seroquel - Avoid delirogenic medications - Encourage out of bed and into chair with meals (5) Noncompliance with diabetes treatment Assessment/Plan: This is the cause of his hyperglycemia and is likely multifactorial in nature. Compounded by dementia, urinary tract infection, and dehydration from osmotic diuresis due to this hyperglycemia. Family concerned about his decreased will to live since his late last year. - Diabetes education - Will likely required assisted living on discharge. Staff will be able to administer insulin there as he has not been declining while hospitalized. (6) Renal insufficiency Assessment/Plan: This is likely multifactorial in nature. He has a solitary kidney after undergoing a nephrectomy for renal cell carcinoma. Renal function may also be compromised by his poor controlled diabetes. Unclear if he had acute kidney injury on admission as his renal function has remained stable despite IV hydration. Urine output has been adequate. - Will discontinue IV fluids as he is tolerating a diet - If he remains hypertensive, will consider initiating an ARB as he does have proteinuria and renal insufficiency - Avoid nephrotoxic medication - Monitor renal function and urine output (7) Atelectasis of both lungs Assessment/Plan: Chest x-ray was concerning for atelectasis, less likely pneumonia as he has no clinical symptoms. Saturating well on room air. - Continue Spirometry - Current Meds Current Meds: Current Medications Generic Name Dose Route Start Last Admin Trade Name Freq PRN Reason Stop Dose Admin Famotidine 20 mg 02/28/19 09:00 03/01/19 08:03 Pepcid PO 20 mg DAILY DAVID Administration Insulin Aspart 3 - 11 unit 02/27/19 12:00 03/01/19 12:29 Novolog SUBQ 9 unit 0800,1200,1700,2100 DAVID Administration Protocol Insulin Glargine 10 unit 02/27/19 09:00 03/01/19 09:04 Lantus Solostar SUBQ 10 unit BID DAVID Administration Lactobacillus Rhamnosus 1 cap 03/01/19 09:00 03/01/19 08:03 Culturelle PO 03/19/19 00:00 1 cap DAILY DAVID Administration Quetiapine Fumarate 25 mg 02/27/19 19:18 02/28/19 21:21 Seroquel PO 25 mg QPM DAVID Administration Sodium Chloride 10 ml 02/26/19 17:00 03/01/19 08:03 Normal Saline Flush 0.9% IVP 10 ml 0100,0900,1700 DAVID Administration Trimethoprim/Sulfamethoxazole 1 tab 02/28/19 21:00 03/01/19 08:03 Bactrim Ds 800/160 PO 03/19/19 00:00 1 tab BID DAVID Administration - Lab Result Lab results reviewed: Yes Fish Bone Diagrams: 03/01/19 04:30 03/01/19 04:30 - Additional Planning Condition/Complexity: Improved Subjective - Subjective Patient Reports: Feeling Better (Denies dyspnea, nausea, vomiting. Has been tolerating a diet without problems.) Nursing Reports: No Complaints Objective Vital Signs: Vital Signs - 24 hr 02/28/19 02/28/19 03/01/19 15:00 21:44 06:00 Temperature 36.9 C Heart Rate [ 56 L 84 76 Monitoring electrodes] Heart Rate [ Sitting (After 1 Minute)] Heart Rate [ Standing (After 1 Minute)] Heart Rate [ Supine] Respiratory 15 19 15 Rate Blood Pressure 137/106 H 152/80 H 151/85 H [Right Brachial artery] Blood Pressure [Sitting (After 1 Minute)] Blood Pressure [Standing ( After 1 Minute) ] Blood Pressure [Supine] O2 Saturation 96 95 96 03/01/19 03/01/19 03/01/19 10:00 10:32 10:57 Temperature 36.7 C Heart Rate [ 62 Monitoring electrodes] Heart Rate [ 58 L 85 Sitting (After 1 Minute)] Heart Rate [ 74 69 Standing (After 1 Minute)] Heart Rate [ 70 62 Supine] Respiratory 18 Rate Blood Pressure 164/74 H [Right Brachial artery] Blood Pressure 136/81 H 143/76 H [Sitting (After 1 Minute)] Blood Pressure 143/71 H 140/66 H [Standing ( After 1 Minute) ] Blood Pressure 124/84 H 149/7 H [Supine] O2 Saturation 99 Oxygen O2 Source [Without Activity] Room air O2 Source Room air I&O (Last 24 Hrs): Intake and Output Totals x24h 02/27/19 02/28/19 03/01/19 23:59 23:59 23:59 Intake Total 4742.377 4937.316 1753.0 Output Total 2750 1850 2330 Balance 6528.356 1153.316 -577.0 General: Alert, Oriented x3 HEENT: Atraumatic Neuro: Alert, Non Focal Cardiovascular: Regular rate, Normal S1, Normal S2, No murmurs Respiratory: No respiratory distress Abdomen: Normal bowel sounds, No tenderness Extremities: No edema Skin: No rashes - Results Results: Laboratory Results WBC 6.5 x10^3/uL (4.8-10.8) 03/01/19 04:30 RBC 3.72 10^6/uL (4.70-6.10) L 03/01/19 04:30 Hgb 10.7 g/dL (14.0-18.0) L 03/01/19 04:30 Hct 33.8 % (42.0-52.0) L 03/01/19 04:30 MCV 90.9 fL (80.0-94.0) 03/01/19 04:30 MCH 28.8 pg (27.0-31.0) 03/01/19 04:30 MCHC 31.7 g/dL (32.0-36.0) L 03/01/19 04:30 RDW 15.3 % (12.0-15.0) H 03/01/19 04:30 Plt Count 137 10^3/uL (130-450) 03/01/19 04:30 MPV 11.9 fL (7.4-11.4) H 03/01/19 04:30 Neut # (Auto) 3.6 10^3/uL (1.5-6.6) 03/01/19 04:30 Lymph # (Auto) 2.0 10^3/uL (1.5-3.5) 03/01/19 04:30 [place] # (Auto) 0.6 10^3/uL (0.0-1.0) 03/01/19 04:30 Eos # (Auto) 0.2 10^3/uL (0.0-0.7) 03/01/19 04:30 Baso # (Auto) 0.0 10^3/uL (0.0-0.1) 03/01/19 04:30 Absolute Nucleated RBC 0.00 x10^3/uL 03/01/19 04:30 Nucleated RBC % 0.0 /100WBC 03/01/19 04:30 PT 12.1 secs (9.9-12.6) 02/26/19 14:36 INR 1.1 (0.8-1.2) 02/26/19 14:36 VBG pH 7.298 (7.31-7.41) L 02/27/19 09:05 VBG pCO2 39.3 mmHg (41-51) L 02/27/19 09:05 VBG pO2 43.1 mmHg (25-47) 02/27/19 09:05 VBG HCO3 18.8 mmol/L (23-28) L 02/27/19 09:05 VBG Total CO2 20.0 mmol/L (24-29) L 02/27/19 09:05 VBG O2 Saturation 83.6 % (60-80) H 02/27/19 09:05 VBG Base Excess -7.1 mmol/L (-2 - +2) L 02/27/19 09:05 Sodium 141 mmol/L (135-145) 03/01/19 04:30 Potassium 4.3 mmol/L (3.5-5.0) 03/01/19 04:30 Chloride 111 mmol/L (101-111) 03/01/19 04:30 Carbon Dioxide 19 mmol/L (21-32) L 03/01/19 04:30 Anion Gap 11.0 (6-13) 03/01/19 04:30 BUN 26 mg/dL (6-20) H 03/01/19 04:30 Creatinine 2.2 mg/dL (0.6-1.2) H 03/01/19 04:30 Estimated GFR (MDRD) 29 (>89) L 03/01/19 04:30 Glucose 237 mg/dL (70-100) H 03/01/19 04:30 Glycated Hemoglobin 16.6 % (4.6-6.2) H 02/26/19 17:47 Estim Average Glucose 430 (70-100) H 02/26/19 17:47 Lactic Acid 1.9 mmol/L (0.5-2.2) 02/26/19 14:44 Calcium 8.1 mg/dL (8.5-10.3) L 03/01/19 04:30 Phosphorus 2.6 mg/dL (2.5-4.6) 02/27/19 04:35 Magnesium 2.0 mg/dL (1.7-2.8) 02/28/19 04:35 Iron 74 ug/dL (45-182) 02/26/19 17:47 TIBC 392 ug/dL (250-450) 02/26/19 17:47 % Saturation 19 % (20-50) L 02/26/19 17:47 Transferrin 280 mg/dL (180-329) 02/26/19 17:47 Total Bilirubin 0.5 mg/dL (0.2-1.0) 02/26/19 14:36 AST 26 IU/L (10-42) 02/26/19 14:36 ALT 23 IU/L (10-60) 02/26/19 14:36 Alkaline Phosphatase 200 IU/L (42-121) H 02/26/19 14:36 Total Creatine Kinase 81 IU/L (22-269) 02/26/19 14:36 CK-MB (CK-2) 3.6 ng/mL (0.6-6.3) 02/26/19 14:36 Troponin I < 0.04 ng/mL (<0.49) 02/26/19 21:03 Total Protein 6.7 g/dL (6.7-8.2) 02/26/19 14:36 Albumin 3.0 g/dL (3.2-5.5) L 02/26/19 14:36 Globulin 3.7 g/dL (2.1-4.2) 02/26/19 14:36 Albumin/Globulin Ratio 0.8 (1.0-2.2) L 02/26/19 14:36 Triglycerides 284 mg/dL (-149) H 02/27/19 04:35 Cholesterol 178 mg/dL (-199) 02/27/19 04:35 LDL Cholesterol, Calc 93 mg/dL (-129) 02/27/19 04:35 VLDL Cholesterol 57 mg/dL 02/27/19 04:35 HDL Cholesterol 28 mg/dL (60-) L 02/27/19 04:35 LDL/HDL Ratio 3.3 (<3.6) 02/27/19 04:35 Cholesterol/HDL Ratio 6.4 (<5.0) 02/27/19 04:35 Lipase 69 U/L (22-51) H 02/26/19 14:36 Vitamin B12 555 pg/mL (180-914) 02/26/19 14:36 Folate 6.42 ng/mL (5.90 - >24.8) 02/26/19 14:36 Urine Color YELLOW 02/26/19 23:02 Urine Clarity CLEAR (CLEAR) 02/26/19 23:02 Urine pH 6.5 PH (5.0-7.5) 02/26/19 23:02 Ur Specific [place] 1.010 (1.002-1.030) 02/26/19 23:02 Urine Protein 100 mg/dL (NEGATIVE) H 02/26/19 23:02 Urine Glucose (UA) >=1000 mg/dL (NEGATIVE) H 02/26/19 23:02 Urine Ketones NEGATIVE mg/dL (NEGATIVE) 02/26/19 23:02 Urine Occult Blood SMALL (NEGATIVE) H 02/26/19 23:02 Urine Nitrite NEGATIVE (NEGATIVE) 02/26/19 23:02 Urine Bilirubin NEGATIVE (NEGATIVE) 02/26/19 23:02 Urine Urobilinogen 0.2 (NORMAL) E.U./dL (NORMAL) 02/26/19 23:02 Ur Leukocyte Esterase NEGATIVE (NEGATIVE) 02/26/19 23:02 Urine RBC 6-10 /HPF (0-5) H 02/26/19 23:02 Urine WBC 6-10 /HPF (0-3) H 02/26/19 23:02 Urine WBC Clumps PRESENT 02/26/19 15:05 Ur Squamous Epith Cells FEW Squamous (<= Few) 02/26/19 23:02 Urine Bacteria Few /HPF (None Seen) 02/26/19 23:02 Ur Microscopic Review INDICATED 02/26/19 23:02 Urine Culture Comments INDICATED 02/26/19 23:02 Nasal Screen MRSA (PCR) NEGATIVE (NEGATIVE) 02/26/19 16:30 Urine Opiates Screen NEGATIVE (NEGATIVE) 02/26/19 16:00 Ur Oxycodone Screen NEGATIVE (NEGATIVE) 02/26/19 16:00 Urine Methadone Screen NEGATIVE (NEGATIVE) 02/26/19 16:00 Ur Propoxyphene Screen NEGATIVE (NEGATIVE) 02/26/19 16:00 Ur Barbiturates Screen NEGATIVE (NEGATIVE) 02/26/19 16:00 Ur Tricyclics Screen NEGATIVE (NEGATIVE) 02/26/19 16:00 Ur Phencyclidine Scrn NEGATIVE (NEGATIVE) 02/26/19 16:00 Ur Amphetamine Screen NEGATIVE (NEGATIVE) 02/26/19 16:00 U Methamphetamines Scrn NEGATIVE (NEGATIVE) 02/26/19 16:00 U Benzodiazepines Scrn NEGATIVE (NEGATIVE) 02/26/19 16:00 Urine Cocaine Screen NEGATIVE (NEGATIVE) 02/26/19 16:00 U Cannabinoids Screen NEGATIVE (NEGATIVE) 02/26/19 16:00 Ethyl Alcohol < 5.0 mg/dL 02/26/19 14:36 Serum Ketones NEGATIVE (NEGATIVE) 02/26/19 14:36 Blood Type O POSITIVE 02/26/19 15:42 Blood Type Recheck O POSITIVE 02/26/19 14:36 Antibody Screen NEGATIVE 02/26/19 15:42 Sepsis Event Note (H) - Evaluation Current Stage of Sepsis: Ruled out ABX Reporting Has patient been on IV antibiotics over the past 48 hours?: No Current Medications - Current Medications Current Medications: Active Medications Acetaminophen (Tylenol) 650 mg PO Q4HR PRN PRN Reason: Pain 1 to 4 Famotidine (Pepcid) 20 mg PO DAILY [facility] Last Admin: 03/01/19 08:03 Dose: 20 mg Insulin Aspart (Novolog) 3 - 11 unit SUBQ 0800,1200,1700,2100 [facility]; Protocol Last Admin: 03/01/19 12:29 Dose: 9 unit Insulin Aspart (Novolog) 5 unit SUBQ TIDWM [facility] Insulin Glargine (Lantus Solostar) 12 unit SUBQ BID [facility] Lactobacillus Rhamnosus (Culturelle) 1 cap PO DAILY [facility] Stop: 03/19/19 00:00 Last Admin: 03/01/19 08:03 Dose: 1 cap Prochlorperazine Edisylate (Compazine Inj) 10 mg IVP Q6HR PRN PRN Reason: Nausea / Vomiting Quetiapine Fumarate (Seroquel) 25 mg PO QPM [facility] Last Admin: 02/28/19 21:21 Dose: 25 mg Sodium Chloride (Normal Saline Flush 0.9%) 10 ml IVP 0100,0900,1700 [facility] Last Admin: 03/01/19 08:03 Dose: 10 ml Sodium Chloride (Normal Saline Flush 0.9%) 10 ml IVP PRN PRN PRN Reason: NEEDED PER PROVIDER ORDERS Trimethoprim/Sulfamethoxazole (Bactrim Ds 800/160) 1 tab PO BID [facility] Stop: 03/19/19 00:00 Last Admin: 03/01/19 08:03 Dose: 1 tab Glipizide 10 mg PO 0730,1630 06/27/18 Amlodipine Besylate 2.5 mg PO DAILY 02/26/19 Cetirizine HCl 10 mg PO DAILY 02/26/19 Metformin HCl 1,000 mg PO BIDWM 02/26/19
[2019-03-01] MEDS: QUEtiapine 25 MG TABLET PO SCH (20:43)
[2019-03-02 06:05] LABS: CALCIUM 8.2 mg/dL (8.5-10.3); CREATININE 2.6 mg/dL (0.6-1.2)
[2019-03-02] MEDS: INSULIN ASPART 300 UNIT/3 ML PEN SUBQ SCH ×6 (08:05→21:16)
[2019-03-02] MEDS: INSULIN GLARGINE 300 UNIT/3 ML PEN SUBQ SCH ×2 (08:06→21:15)
[2019-03-02] MEDS: FAMOTIDINE 20 MG TABLET PO SCH (08:53)
[2019-03-02] MEDS: SODIUM CHLORIDE FLUSH 0.9% 10 ML SYRINGE IVP SCH ×3 (08:53→23:37)
[2019-03-02] MEDS: LACTOBACILLUS RHAMNOSUS GG CAPSULE PO SCH (08:53)
[2019-03-02] MEDS ORDERED: CIPROFLOXACIN 250 MG TABLET PO SCH (09:00)
[2019-03-02 12:00] LABS: CALCIUM 8.3 mg/dL (8.5-10.3); CREATININE 2.6 mg/dL (0.6-1.2)
[2019-03-02] MEDS ORDERED: INSULIN ASPART 300 UNIT/3 ML PEN SUBQ SCH (12:00)
[2019-03-02 13:03] LABS: HEMOGLOBIN A1C 1.79 g/dL; HEMOGLOBIN A1C % 15.8 % (4.6-6.2)
--- NOTE | 2019-03-02 13:48 | PROVIDER PROGRESS NOTE ---
Subjective - Prog Note Date Prog Note Date: 03/02/19 Prog Note Time: 13:46 - Subjective Subjective: He continues to report feeling well. He was happy to hear his blood sugars are better controlled. Tolerating a diet without nausea/vomiting. Denies dysuria, urgency, frequency. Current Medications - Current Medications Current Medications: Active Medications Acetaminophen (Tylenol) 650 mg PO Q4HR PRN PRN Reason: Pain 1 to 4 Ciprofloxacin (Cipro) 500 mg PO BID COUNTS INCLUDE 234 BEDS AT THE [facility] Last Admin: 03/02/19 08:53 Dose: 500 mg Famotidine (Pepcid) 20 mg PO DAILY COUNTS INCLUDE 234 BEDS AT THE [facility] Last Admin: 03/02/19 08:53 Dose: 20 mg Insulin Aspart (Novolog) 5 unit SUBQ TIDWM COUNTS INCLUDE 234 BEDS AT THE [facility] Last Admin: 03/02/19 11:58 Dose: 5 unit Insulin Aspart (Novolog) 1 - 5 unit SUBQ 0800,1200,1700,2100 COUNTS INCLUDE 234 BEDS AT THE [facility]; Protocol Last Admin: 03/02/19 11:58 Dose: 4 unit Insulin Glargine (Lantus Solostar) 12 unit SUBQ BID COUNTS INCLUDE 234 BEDS AT THE [facility] Last Admin: 03/02/19 08:06 Dose: 12 unit Lactobacillus Rhamnosus (Culturelle) 1 cap PO DAILY COUNTS INCLUDE 234 BEDS AT THE [facility] Stop: 03/19/19 00:00 Last Admin: 03/02/19 08:53 Dose: 1 cap Prochlorperazine Edisylate (Compazine Inj) 10 mg IVP Q6HR PRN PRN Reason: Nausea / Vomiting Sodium Chloride (Normal Saline Flush 0.9%) 10 ml IVP 0100,0900,1700 COUNTS INCLUDE 234 BEDS AT THE [facility] Last Admin: 03/02/19 08:53 Dose: 10 ml Sodium Chloride (Normal Saline Flush 0.9%) 10 ml IVP PRN PRN PRN Reason: NEEDED PER PROVIDER ORDERS Glipizide 10 mg PO 0730,1630 06/27/18 Amlodipine Besylate 2.5 mg PO DAILY 02/26/19 Cetirizine HCl 10 mg PO DAILY 02/26/19 Metformin HCl 1,000 mg PO BIDWM 02/26/19 Objective - Vital Signs/Intake & Output Reviewed Vital Signs: Yes Vital Signs: Vital Signs x48h Temp Pulse Pulse Pulse Pulse Resp BP 03/02/19 11:41 37 C 94 20 141/75 H 03/02/19 10:00 89 75 88 03/02/19 09:00 36.7 C 59 L 14 147/63 H BP BP BP Pulse Ox 03/02/19 11:41 94 03/02/19 10:00 141/75 H 137/61 H 123/75 03/02/19 09:00 96 Intake & Output: Intake & Output 02/27/19 02/28/19 03/01/19 03/02/19 23:59 23:59 23:59 23:59 Intake Total 4742.377 4937.316 2233.0 195 Output Total 2750 1850 2330 725 Balance 3878.615 8549.316 -97.0 -530 - Objective General Appearance: positive: No acute distress, Alert Eyes Bilateral: positive: Normal inspection ENT: positive: ENT inspection nml Respiratory: positive: No respiratory distress, Breath sounds nml Cardiovascular: positive: Regular rate & rhythm, No murmur Abdomen: positive: Non-tender, No distention, Tenderness Skin: positive: Warm, Dry Extremities: positive: No pedal edema Neurologic/Psychiatric: positive: Oriented x3 - Lab Results Fish Bones: 03/01/19 04:30 03/02/19 11:45 Other Labs: Lab Results x24hrs 03/02/19 03/02/19 03/02/19 Range/Units 11:45 05:19 05:19 Sodium 137 140 (135-145) mmol/L Potassium 4.9 4.1 (3.5-5.0) mmol/L Chloride 106 112 H (101-111) mmol/L Carbon Dioxide 20 L 19 L (21-32) mmol/L Anion Gap 11.0 9.0 (6-13) BUN 28 H 27 H (6-20) mg/dL Creatinine 2.6 H 2.6 H (0.6-1.2) mg/dL Estimated GFR (MDRD) 24 L 24 L (>89) Glucose 306 H 120 H (70-100) mg/dL Glycated Hemoglobin 15.8 H (4.6-6.2) % Estim Average Glucose 407 H (70-100) Calcium 8.3 L 8.2 L (8.5-10.3) mg/dL ABX Reporting Has patient been on IV antibiotics over the past 48 hours?: No Sepsis Event Note (H) - Evaluation Current Stage of Sepsis: Ruled out Possible source of Sepsis: positive: Genitourinary Assessment/Plan - Problem List (1) DM (diabetes mellitus), type 2, uncontrolled Impression: Admitted for hyperglycemia secondary to medication non-compliance. Initially required IV insulin infusion but blood sugars now controlled on SC insulin - Continue Lantus 12U BID, add Novolog 5 units with meals, continue sliding scale - CC diet Qualifiers: Glycemic state: with hyperglycemia Qualified Code(s): E11.65 - Type 2 diabetes mellitus with hyperglycemia (2) UTI (urinary tract infection) Impression: Initial urinalysis revealed pyuria although cultures grew mixed kenia. CT of the abdomen/pelvis was indeterminate for pyelonephritis but was suggestive of chronic urinary retention He received IV Ceftriaxone initially and has since been transitioned to Bactrim PO Blood cultures negative to date - Discontinue Bactrim as he has solitary kidney and I believe is the cause of his elevated creatinine this morning - Start Ciprofloxacin 500mg twice a day to complete a 7 day course on March 04 for complicated UTI. (3) Anemia Impression: Likely anemia of chronic disease in the setting of renal insufficiency. Hemoglobin has been stable Iron studies, B12, Folic were unremarkable. - Monitor for signs of bleeding (4) Dementia Impression: CT of the head with evidence of chronic ischemic disease disease but not acute process. His dementia maybe vascular in nature or pseudodementia Remains alert and oriented. - Will discontinue Seroquel and initiate Sertraline as he appears to be depressed and there may be a component of pseudodementia - Avoid delirogenic medications - Encourage out of bed and into chair with meals (5) Complicated grief Impression: This is likely complicated by depression since the passing of his back in June of 2018 Family concerned for decreased will to live and the patient has not been compliant with his medications - Will start Sertraline 12.5mg daily (6) Noncompliance with diabetes treatment Impression: This is the cause of his hyperglycemia and is likely multifactorial in nature. Compounded by dementia, depression, urinary tract infection, and dehydration from osmotic diuresis due to the hyperglycemia. Family concerned about his decreased will to live since his late last year - Treat underlying depression - Will likely required assisted living on discharge. 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 (7) Renal insufficiency Impression: This is likely multifactorial in nature. He has a solitary kidney after undergoing a nephrectomy for renal cell carcinoma. Renal function may also be compromised by his diabetes. Unclear if he had acute kidney injury on admission as his renal function has remained stable despite IV hydration. Has a small rise in creatinine today which is likely secondary to the initiation of Bactrim as it inhibits creatinine secretion at proximal tubules causing a falsely elevated creatinine - Discontinue Bactrim considering his solitary kidney. Will start Cipro for his UTI. - Will monitor his renal function for one more day prior to discharge to insure his creatinine does not continue to rise - If he remains hypertensive, will consider initiating an ARB as he does have proteinuria and renal insufficiency - Avoid nephrotoxic medication (8) Atelectasis of both lungs Impression: Chest x-ray was concerning for atelectasis, less likely pneumonia as he has no clinical symptoms. Saturating well on room air. - Continue Spirometry
[2019-03-02] MEDS ORDERED: ZINC OXIDE 20% OINT 28.35 GM TUBE TOP PRN (14:17)
[2019-03-03] MEDS ORDERED: CIPROFLOXACIN 250 MG TABLET PO SCH (03:00)
[2019-03-03] MEDS: INSULIN ASPART 300 UNIT/3 ML PEN SUBQ SCH ×4 (07:53→11:28)
[2019-03-03] MEDS: INSULIN GLARGINE 300 UNIT/3 ML PEN SUBQ SCH (07:54)
[2019-03-03] MEDS ORDERED: INSULIN ASPART 300 UNIT/3 ML PEN SUBQ SCH (08:00)
[2019-03-03 08:29] LABS: CALCIUM 8.4 mg/dL (8.5-10.3); CREATININE 2.5 mg/dL (0.6-1.2)
[2019-03-03] MEDS: FAMOTIDINE 20 MG TABLET PO SCH (08:48)
[2019-03-03] MEDS: LACTOBACILLUS RHAMNOSUS GG CAPSULE PO SCH (08:49)
[2019-03-03] MEDS: SODIUM CHLORIDE FLUSH 0.9% 10 ML SYRINGE IVP SCH (08:49)
[2019-03-03] MEDS ORDERED: SERTRALINE 25 MG TABLET PO SCH (09:00)
--- NOTE | 2019-03-03 10:08 | Discharge Plan ---
"Discharge Plan for SNF / [facility] - Discharge Plan And Transition Orders Problem Reviewed?: Yes Disposition: 01 Home, Self Care Condition: Good Allergies and Adverse Reactions: Allergies Allergy/AdvReac Type Severity Reaction Status Date / Time gemfibrozil Allergy Severe FACIAL Verified 02/26/19 16:47 SWELLING/REDNESS lisinopril Allergy Edema Verified 02/26/19 14:03 Health Concerns: Patient is a pleasant 83-year-old white male who has a history of renal cancer with a nephrectomy, hypertension, and diabetes. He has become recently depressed because of the loss of his in June 2018. And has stopped taking care of himself. On admission he was walking up a steep slope, became dizzy, leaned against a tree and then slumped to the ground. He was found to have a very high glucose of greater than 700, with high acid level in his blood, an urinary tract infection, and acute renal insufficiency. This is an a person who has only one kidney. Plan of Treatment: He received IV fluids to hydrate him. He received high doses of insulin to bring his sugar down. He has baseline kidney function is down to 2.1. However an antibiotic was used for a urinary tract infection made his creatinine go to 2.6. Today's 2.5. We have change the antibiotic from Bactrim to Cipro.He can stop taking the Ciprofloxicin on 03/05 after two doses that day. He cannot take metformin because he has only one kidney and his creatinine is too high. He will need to start taking lantus 12 units SQ twice day. Care Goals: 1. Finish antibiotic therapy for urinary tract infection. That will be completed on March 05. 2. Make sure you drink plenty of water and fluids to keep your kidneys healthy. 3. Have your primary care provider check your BUN and creatinine February 03. 4. Follow-up with your primary care provider, Dr. Bowman, in the next 1 to 2 weeks. 5. You cannot take metformin while your kidney function is below normal. In fact it may be contraindicated in you because you only have one kidney. 6. Start Lantus 12 units injection twice a day. One before breakfast and once before bedtime. Also start short acting insulin 7 units before each meal. Assessment: Patient says he understands why he came in. Promises to be better about taking care of himself. - SNF / [facility] Transition Orders Admit to (Facility): [facility] Under the care of (Name): Anderson Bowman MD Discharge Diagnosis: 1. Uncontrolled type 2 diabetes mellitus with hyper osmotic, nonketotic hyperglycemia 2. Urinary tract infection 3. Dementia without behavioral disturbance 4. Adjustment disorder 5. Patient noncompliance with medication treatment and resume 6. Chronic kidney disease with acute exacerbation 7. Status post nephrectomy, history of renal cancer Medicare Certification Statement: I certify that [facility] is medically necessary on a continuing basis for any of the conditions for which she/he is receiving care during hospitalization. Notify PCP of admission and forward orders to primary provider for signature. Weight on admission and: Weekly Other Notification Orders: Call PCP immediately if patient develops dyspnea, chest pain/tightness or edema. Additional Bowel Program Orders: If no BM after 2 days, nurse may give M.O.M. 30ml PO PRN and/or ducolax Supp 1 [place] and/or PAOLA 250mg P.O., and/or senna 1-2 tabs PO. On day 3 nurse may give repeat above order until residents constipation is resolved. Annual Influenza Vaccine (between Apr 26 and November 23): Yes Two-step PPD per [facility] [phone] or approved exception documents: Yes Medication Orders: PLEASE REFER TO THE DISCHARGE MEDICATION LIST. Insulin Orders?: Yes - Medications New Prescriptions: Ciprofloxacin [Cipro] 500 mg PO Q18H #5 tablet Insulin Glargine [Lantus Solostar] 12 unit SQ BID #1 pen - Diet Type: No added sugar Texture: Regular Liquids: Thin May have monthly special meal: Yes - Therapies | Activity Rehabilitation Potential: Maximize functional status Activity: Activity as Tolerated Assistance Devices: Walker Insulin Orders - SNF Basal | Correction | Custom Orders: Diagnosis: Diabetes Initiate hypo and hyperglycemia protocols for BG <70 and BG >375. May check BG PRN for signs/symptoms of dysglycemia. Frequency of BG checks: [AC/Meal/HS/prn] Basal Insulin: [x] Lantus 100 units / ml inject subq as follows: [12 units SQ bid] [] Other: [] Correction Insulin: - 7 units of novolog SQ ac tid. No sliding scale at this time. [Choose: Novolog/Humalog]100 units /ml insulin inject subq per orders indic ate below [] LOW DOSE [] MODERATE DOSE [] MODERATE/HIGH DOSE [] HIGH DOSE GB UNITS GB UNITS GB UNITS GB UNITS 61-140 0 UNITS 61-140 0 UNITS 61-140 0 UNITS 61-140 0 UNITS 141-175 1 UNITS 141-175 1 UNITS 141-175 2 UNITS 141-175 3 UNITS 176-225 2 UNITS 176-225 3 UNITS 176-225 4 UNITS 176-225 5 UNITS 226-275 3 UNITS 226-275 5 UNITS 226-275 6 UNITS 226-275 7 UNITS 276-325 4 UNITS 276-325 7 UNITS 276-325 8 UNITS 276-325 9 UNITS 326-375 5 UNITS 326-375 9 UNITS 326-375 10 UNITS 326-375 11 UNITS >375 CONTACT MD >375 CONTACT MD >375 CONTACT MD >375 CONTACT MD Custom Dosing: [Choose: Novolog/Humalog] 100 units/ml Insulin inject subq as follows: GB Units 61-140 [] Units 141-175 [] Units 176-225 [] Units 226-275 [] Units 276-325 []Units 326-375 [] Units >375 Contact MD"
[2019-03-03 11:20] VITALS: BP 131/73
--- NOTE | 2019-03-03 14:04 | DISCHARGE SUMMARY ---
Physician: Amarilys Wise MD DATE OF ADMISSION: 02/26/2019 DATE OF DISCHARGE: 03/03/2019 DISCHARGE DIAGNOSES 1. Hyperosmolar nonketotic diabetes mellitus type 2. 2. Metabolic encephalopathy. 3. Near syncope. 4. Urinary tract infection. 5. Noncompliance with medical treatment. 6. 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 7. Elevated alkaline phosphatase. 8. Vnnvj-ot-hhmeldp kidney disease. 9. Chronic anemia. 10. Dementia, Alzheimer's type DISCHARGE MEDICATIONS 1. Amlodipine 2.5 mg daily. 2. Cetirizine 10 mg daily. 3. Glipizide 10 mg p.o. b.i.d. 4. Cipro 500 mg every 18 hours for 5 more doses. 5. NovoLog 7 units subcutaneous t.i.d. before meals. 6. Lantus 12 units subcutaneous b.i.d. in the morning and before bedtime. PRINCIPAL PROCEDURES 1. Echocardiogram with mild concentric left ventricular hypertrophy. Left ventricular systolic function normal with ejection fraction of 55-60%. Diastolic function, indeterminate. No regional wall motion abnormality. No significant valvular heart disease. This is a preliminary report, final must be reviewed. 2. Chest x-ray on February 26 and showing mild cardiomegaly without CHF, pneumonia, or opacity. 3. Head CT with no acute intracranial abnormality. Scqz-yq-lhpjnqab degree of chronic small vessel ischemia and liek-ym-igypiiqw degree of generalized volume loss. 4. Cervical spine CT with multilevel mild to moderate degenerative disk disease, no acute processes or posttraumatic abnormality noted. 5. Abdomen and pelvis CT with bladder diverticulum. Bladder is distended suggestive of chronic bladder outlet obstruction. Two nonobstructive renal calculi on the right side. 6. Carotid Doppler study with mild bilateral carotid artery plaquing, but not clinically significant. Normal antegrade flow in the bilateral vertebral arteries. 7. Blood cultures, no growth after 2 days. 8. Two urine cultures with polymicrobial growth, including potential pathogens, suggestive of a contamination. HOSPITAL COURSE: This is an 83-year-old man who has a documented history of nephrectomy because of kidney cancer, diabetes and hypertension. His in 06/2018 and, according to his granddaughter, patient has lost his will to live and has stopped taking medications and stopped taking care of himself. He was at the [place] parade today when he was walking up a steep slope. He became suddenly dizzy, walked over toward a tree, hugged it, was dizzy and then slumped to the ground. He does not think he had syncope and seems to remember the entire event. He was brought to the emergency room by ambulance. In the emergency room, he is confused, giving very short answers, but his blood pressure and heart rate are stable. Dizziness had resolved. In the emergency room, his glucose was greater than 700, venous pH was 7.23, creatinine 2.3. We do not have previous creatinines on him. Patient was evaluated as a diabetic who is noncompliant with his medications. He was not felt to be in diabetic ketoacidosis, but felt to have hyperosmolar nonketotic state. His A1c was 16.6%. He was placed in the ICU for an insulin drip, not because of critical status. His confusion, near syncope syndrome resolved. He was still mildly confused and would sundown at night, but did not require any change in medications. Simple verbal prompting would calm him down. His creatinine started at 2.3, came down to 2.1. Because of his abnormal urinary constituents, we had a repeat urine culture done and that was again with contamination. CT of the abdomen was done because of elevated alkaline phosphatase and the possibility of obstructive urine, and CT is as above. We feel that he most likely has a urinary tract infection, not necessarily prostatitis. He was switched from IV Rocephin to p.o. Bactrim. Bactrim caused, we think, his creatinine to go to 2.6. As such, we stopped Bactrim, repeated his creatinine on Cipro and his creatinine was 2.5 at discharge. Glucose by the time of discharge was in the low 200s. He has always hated taking insulin and hated the idea of needles, but he can no longer take metformin because his kidney function, and oral hypoglycemic will not completely control him. As such, patient is discharged on new doses of Lantus 12 units subcutaneous b.i.d. and NovoLog insulin 7 units before meals. He is felt to have an adjustment disorder because of the of his . This has resulted in noncompliance with his treatment regimen. He declined antidepressants. He did have an elevated alkaline phosphatase without elevated liver enzymes during his stay. He was elevated at 200, but he had no liver pathology on CT of the abdomen, and he may have osteoporosis. No evidence of Paget's was seen on his skeletal films that we did for chest x-rays, CTs, etc. He did have a CT of the head, CT of the neck because of the near syncope on the day of admission. Orthostatics were also done. On the day of discharge, his supine blood pressure was 131/73, sitting blood pressure was 138/91, standing blood pressure 134/70. He was noted to have mild anemia during his stay. Hemoglobin was 10.8, down to 10.6. Iron studies and B12 and folate studies were done and normal. He may have anemia of chronic disease due to his chronic creatinine. The patient had definite cognitive memory deficit during his stay. It was felt that he needed more care than he was giving himself at home. He was seen by physical therapy. He was able to ambulate with good balance, without an assistive device, and demonstrated normal base of support. His oxygen saturations consistently held at normal with activity. He had no pain or dyspnea. It was recommended he continue to work with physical therapy at his next facility to improve transfers, walking, and activities of daily living. For safety purposes, he was transferred to an assisted living facility. He is hoping that it is temporary. I think his family is thinking that this may be more permanent. He is discharged to complete his Cipro for the next 5 doses. He has been stopped on his oral hypoglycemics and put on insulin and NovoLog. He should be following up with his primary care provider, Dr. Bowman in the next 1-2 weeks. I have recommended that he get his BMP checked in the next week and to monitor his sugars to see if his NPH or short-acting NovoLog before meals should be adjusted. Greater than 30 minutes was spent in coordinating the patient's discharge. PHYSICAL EXAMINATION VITAL SIGNS: Temperature was 36.6, pulse 89, blood pressure 131/73, respirations 18, 94% on room air. GENERAL: He is an alert patient to place, person, but not necessarily time. He promises to do better with taking care of himself. He is a quiet demeanored, short-statured elderly gentleman with a good comb-over, drinking his coffee this morning when I examined him. NECK: Supple. No bruits. LUNGS: Clear to auscultation and percussion. PMI is normally placed with a regular rate and rhythm and a soft systolic ejection murmur at the apex. ABDOMEN: Soft, nontender. No organomegaly. No fluid wave. EXTREMITIES: Have bowlegged knees, but no clubbing, cyanosis or edema. He stands up without any assistance, walks across the room at my request and is able to come back to his chair. TD: 03/03/2019 13:00 [id number]
== END 2019-03-03 14:10 | disposition home or self-care (01) | DRG 637 ==
LOC: EDUNIT# → ED 13:55 → ICU 15:24 → MS3 03-01 10:46 → MS2 03-01 16:52
PROVIDERS: ADMIT Internal Medicine; ATTEND Specialist
DX: E11.65 Type 2 diabetes mellitus with hyperglycemia (principal); N19 Unspecified kidney failure; R41.0 Disorientation, unspecified; I11.9 Hypertensive heart disease without heart failure; M50.31 Other cervical disc degeneration, high cervical region; E11.00 Type 2 diabetes mellitus with hyperosmolarity without nonketotic hyperglycemic-hyperosmolar coma (NKHHC); G93.41 Metabolic encephalopathy; N39.0 Urinary tract infection, site not specified; N17.9 Acute kidney failure, unspecified; F05 Delirium due to known physiological condition; I67.82 Cerebral ischemia; E87.1 Hypo-osmolality and hyponatremia; J98.11 Atelectasis; T36.8X5A Adverse effect of other systemic antibiotics, initial encounter; Y92.230 Patient room in hospital as the place of occurrence of the external cause; R55 Syncope and collapse; F43.21 Adjustment disorder with depressed mood; I13.10 Hypertensive heart and chronic kidney disease without heart failure, with stage 1 through stage 4 chronic kidney disease, or unspecified chronic kidney disease; E11.22 Type 2 diabetes mellitus with diabetic chronic kidney disease; N18.9 Chronic kidney disease, unspecified; D63.8 Anemia in other chronic diseases classified elsewhere; G30.9 Alzheimer's disease, unspecified; F02.80 Dementia in other diseases classified elsewhere, unspecified severity, without behavioral disturbance, psychotic disturbance, mood disturbance, and anxiety; N32.3 Diverticulum of bladder; T45.0X6A Underdosing of antiallergic and antiemetic drugs, initial encounter; T38.3X6A Underdosing of insulin and oral hypoglycemic [antidiabetic] drugs, initial encounter; T46.1X6A Underdosing of calcium-channel blockers, initial encounter; Z91.138 Patient's unintentional underdosing of medication regimen for other reason; Y92.009 Unspecified place in unspecified non-institutional (private) residence as the place of occurrence of the external cause; M47.812 Spondylosis without myelopathy or radiculopathy, cervical region; E86.0 Dehydration; E78.5 Hyperlipidemia, unspecified; N20.0 Calculus of kidney; N13.9 Obstructive and reflux uropathy, unspecified; M50.30 Other cervical disc degeneration, unspecified cervical region; Z66 Do not resuscitate; Z60.2 Problems related to living alone; Z87.891 Personal history of nicotine dependence; Z91.81 History of falling; Z79.84 Long term (current) use of oral hypoglycemic drugs; Z79.899 Other long term (current) drug therapy; Z90.5 Acquired absence of kidney; Z85.528 Personal history of other malignant neoplasm of kidney; Z63.4 Disappearance and death of family member
CPT/HCPCS: 36415; 70450; 71045; 72125; 74176; 80048; 80053; 80061; 81001; 82009; 82550; 82553; 82607; 82746; 82803; 82947; 83036; 83540; 83605; 83690; 83735; 84100; 84466; 84478; 84484; 85025; 85610; 86850; 86900; 86901; 87040; 87086; 87150; 93005; 93306; 93880; 96360; 97116; 97161; 97166; 97530; 99284; A9270; J1815; 80306; 80320; 81003; 83721